=== PATIENT | male | born 1980 | race Caucasian/White ===

== ENCOUNTER 2023-08-18 17:27 | Inpatient (IN) | payer OTHER ==
[~2023-08-18] VITALS: Ht 170.2 cm; Wt 75.8 kg
[2023-08-18 19:55] LABS: BASOPHILS % (AUTO) 0.1 % (0.0-2.0); EOSINOPHILS # (AUTO) 0.3 K/uL (0.0-0.7); EOSINOPHILS % (AUTO) 1.2 % (0.0-6.0); HEMATOCRIT 22 % (39-51); LYMPHOCYTES # (AUTO) 0.7 K/uL (0.8-4.8); LYMPHOCYTES % (AUTO) 2.8 % (20.0-44.0); MEAN CORPUSCULAR HEMOGLOBIN 27 PG (26.0-33.0); MEAN CORPUSCULAR HGB CONC 31 g/dl (31.0-36.0); MEAN CORPUSCULAR VOLUME 88 fL (80-96); NEUTROPHILS # (AUTO) 22.2 K/uL (1.8-8.9); NEUTROPHILS % (AUTO) 91.9 % (43.0-81.0); PLATELET COUNT (AUTO) 552 K/uL (150-450); RED BLOOD CELL COUNT(AUTO) 2.52 MIL/uL (4.5-6.0); RED CELL DISTRIBUTION WIDTH 16.6 % (11.5-15.0); WHITE BLOOD COUNT (AUTO) 24.1 K/uL (4.3-11.0)
[2023-08-18 20:05] LABS: HEMOGLOBIN 6.9 g/dL (13.5-17.5)
[2023-08-18 20:21] LABS: ALANINE AMINOTRANSFERASE 7 U/L (12-78); ALBUMIN 2.1 g/dL (3.4-5.0); ALKALINE PHOSPHATASE 86 U/L (46-116); ASPARTATE AMINOTRANSFERASE < 5 U/L (15-37); BILIRUBIN,DIRECT 0.1 mg/dL (0.0-0.2); BILIRUBIN,TOTAL 0.3 mg/dL (0.2-1.0); CALCIUM, SERUM 6.9 mg/dL (8.5-10.1); CHLORIDE 102 mmol/L (98-107); GLUCOSE 89 mg/dL (74-106); LIPASE 88 U/L (16-77); TOTAL PROTEIN, SERUM 6.8 g/dL (6.4-8.2)
[2023-08-18 20:25] LABS: CARBON DIOXIDE 11 mmol/L (21-32); CREATININE 12.5 mg/dL (0.6-1.3); POTASSIUM 6.2 mmol/L (3.5-5.1); SODIUM SERUM 135 mmol/L (136-145); UREA NITROGEN, BLOOD 105 mg/dL (7-18)
[2023-08-18] MEDS ORDERED: FUROSEMIDE 20 MG/2 ML VIAL ONE (20:57)
[2023-08-18] MEDS: FUROSEMIDE 40 MG/4 ML VIAL IV ONE (21:00)
[2023-08-18] MEDS: SODIUM BICARBONATE SYR 50 MEQ/50 ML DISP.SYRIN IV ONE (21:00)
[2023-08-18] MEDS: SODIUM POLYSTYRENE SULFONATE 15 G/60 ML BOTTLE PO ONE (21:00)
[2023-08-18] MEDS: DEXTROSE 50%-WATER 50 ML DISP.SYRIN IV ONE (21:00)
[2023-08-18] MEDS: ALBUTEROL FS 2.5 MG/3 ML VIAL.NEB NEB ONE (21:00)
[2023-08-18] MEDS: CALCIUM CHLORIDE 1,000 MG/10 ML DISP.SYRIN IV ONE (21:00)
[2023-08-18] MEDS: INSULIN REGULAR, HUMAN 100 UNIT/ML 10 ML VIAL IV ONE (21:38)
[2023-08-18 22:06] LABS: ANISOCYTOSIS 1+; BAND % (MANUAL) 1 % (0.0-5.0); EOSINOPHILS % (MANUAL) 2 % (0-4); LYMPHOCYTES % (MANUAL) 4 % (16-48); MONOCYTES % (MANUAL) 3 % (0-11.0); NEUTROPHILS % (MANUAL) 90 (42-76); PLATELET ESTIMATE INCREASED
[2023-08-19] VITALS (8 sets, daily range): BP systolic 96–119; BP diastolic 69–82; TEMP 97.5–98.8; O2SAT 95–99
[2023-08-19] MEDS ORDERED: ACETAMINOPHEN 325 MG TABLET PO PRN (00:30)
[2023-08-19] MEDS ORDERED: CEFTRIAXONE 1 G in IV D5W 50 ML IV SCH (00:30)
[2023-08-19] MEDS ORDERED: PANTOPRAZOLE 40 MG VIAL IV SCH ×2 (00:30→09:00)
[2023-08-19] MEDS ORDERED: MAG HYDROX/AL HYDROX/SIMETH 30 ML UDC PO PRN (00:30)
[2023-08-19] MEDS: DEXTROSE 50%-WATER 50 ML DISP.SYRIN IVP ONE (00:48)
[2023-08-19] MEDS: IV D5/0.45 NACL 1,000 ML IV PRN (00:49)
[2023-08-19 01:26] LABS: CALCIUM, SERUM 7.3 mg/dL (8.5-10.1); POTASSIUM 3.9 mmol/L (3.5-5.1)
[2023-08-19 01:27] LABS: CREATININE 12.9 mg/dL (0.6-1.3)
[2023-08-19] MEDS: CEFTRIAXONE 1GM BAG (ER ONLY) 50 ML IV ONE (03:20)
[2023-08-19] MEDS: PANTOPRAZOLE 40 MG VIAL IV SCH (03:34)
[2023-08-19] MEDS: CEFTRIAXONE 1 G in IV D5W 50 ML IV SCH (03:35)
[2023-08-19] MEDS ORDERED: MIRT7.5T10 PO (08:12)
[2023-08-19] MEDS ORDERED: ALPR0.255 PO (08:12)
[2023-08-19] MEDS ORDERED: CARV25TA2 PO (08:12)
[2023-08-19] MEDS ORDERED: AMLO-213 PO (08:12)
[2023-08-19] MEDS ORDERED: PANT40TA49 PO (08:12)
[2023-08-19 14:57] LABS: BASOPHILS % (AUTO) 0.1 % (0.0-2.0); EOSINOPHILS # (AUTO) 0.3 K/uL (0.0-0.7); EOSINOPHILS % (AUTO) 1.2 % (0.0-6.0); HEMATOCRIT 23 % (39-51); HEMOGLOBIN 7.3 g/dL (13.5-17.5); LYMPHOCYTES # (AUTO) 0.5 K/uL (0.8-4.8); LYMPHOCYTES % (AUTO) 1.9 % (20.0-44.0); MEAN CORPUSCULAR HEMOGLOBIN 27 PG (26.0-33.0); MEAN CORPUSCULAR HGB CONC 32 g/dl (31.0-36.0); MEAN CORPUSCULAR VOLUME 87 fL (80-96); MONOCYTES # (AUTO) 1.1 K/uL (0.1-1.30); MONOCYTES % (AUTO) 4.3 % (2.0-12.0); NEUTROPHILS # (AUTO) 22.8 K/uL (1.8-8.9); NEUTROPHILS % (AUTO) 92.5 % (43.0-81.0); PLATELET COUNT (AUTO) 484 K/uL (150-450); RED BLOOD CELL COUNT(AUTO) 2.66 MIL/uL (4.5-6.0); RED CELL DISTRIBUTION WIDTH 16.6 % (11.5-15.0); WHITE BLOOD COUNT (AUTO) 24.6 K/uL (4.3-11.0)
[2023-08-19] MEDS: ONDANSETRON HCL/PF 4 MG/2 ML VIAL IVP PRN (17:28)
[2023-08-19] MEDS: ALPRAZOLAM 0.25 MG TABLET PO PRN (17:31)
[2023-08-19 20:11] LABS: APPEARANCE,URINE CLEAR (CLEAR); BILIRUBIN,URINE NEGATIVE (NEGATIVE); BLOOD, URINE 3+ Ery/uL (NEGATIVE); COLOR,URINE YELLOW (YELLOW); KETONES,URINE NEGATIVE (NEGATIVE); LEUKOCYTE ESTERASE ,URINE 1+ (NEGATIVE); NITRITE, URINE NEGATIVE (NEGATIVE); PH,URINE 5.5 (5.0-8.0); PROTEIN,URINE 3+ mg/dl (NEGATIVE); UGLUCOSE TRACE mg/dL (NEGATIVE); UROBILINOGEN,URINE 0.2 EU/dL (0.2)
[2023-08-19 20:30] LABS: CREATININE, URINE 119.9 MG/DL (30.0-125.0); URINE TOTAL PROTEIN 650.3 mg/dL (0-11.9)
[2023-08-19 20:31] LABS: AMPHETAMINE, URINE NEGATIVE (NEGATIVE); BARBITURATE, URINE NEGATIVE (NEGATIVE); CANNABINOID, URINE NEGATIVE (NEGATIVE); COCCAINE, URINE NEGATIVE (NEGATIVE); OPIATE, URINE NEGATIVE (NEGATIVE); PHENCYCLIDINE SCREEN,URINE NEGATIVE (NEGATIVE)
[2023-08-19 20:32] LABS: BENZODIAZEPINE, URINE POSITIVE (NEGATIVE)
[2023-08-19 21:25] LABS: ADD URINE CULTURE YES; BACTERIA,URINE 1+ /HPF (None Seen); MUCUS,URINE Moderate /LPF (None Seen); SQUAMOUS EPITHELIAL CELL,UR None Seen /HPF (None Seen)
[2023-08-19 21:39] LABS: EOSINOPHIL,URINE None Seen
[2023-08-19] MEDS: MIRTAZAPINE 15 MG TABLET PO SCH (22:07)
[2023-08-20] VITALS (15 sets, daily range): BP systolic 113–149; BP diastolic 73–90; TEMP 97.4–98.8; O2SAT 95–99
[2023-08-20 07:02] LABS: BASOPHILS % (AUTO) 0.2 % (0.0-2.0); EOSINOPHILS # (AUTO) 0.5 K/uL (0.0-0.7); LYMPHOCYTES # (AUTO) 1.2 K/uL (0.8-4.8); LYMPHOCYTES % (AUTO) 5.1 % (20.0-44.0); MEAN CORPUSCULAR HEMOGLOBIN 28 PG (26.0-33.0); MEAN CORPUSCULAR HGB CONC 33 g/dl (31.0-36.0); MEAN CORPUSCULAR VOLUME 86 fL (80-96); MONOCYTES # (AUTO) 1.2 K/uL (0.1-1.30); MONOCYTES % (AUTO) 5.2 % (2.0-12.0); NEUTROPHILS # (AUTO) 20.5 K/uL (1.8-8.9); NEUTROPHILS % (AUTO) 87.5 % (43.0-81.0); PLATELET COUNT (AUTO) 471 K/uL (150-450); RED BLOOD CELL COUNT(AUTO) 2.35 MIL/uL (4.5-6.0); RED CELL DISTRIBUTION WIDTH 15.9 % (11.5-15.0); WHITE BLOOD COUNT (AUTO) 23.4 K/uL (4.3-11.0)
[2023-08-20 07:19] LABS: ALBUMIN 1.7 g/dL (3.4-5.0); BILIRUBIN,TOTAL 0.2 mg/dL (0.2-1.0); POTASSIUM 3.9 mmol/L (3.5-5.1)
[2023-08-20 07:26] LABS: CALCIUM, SERUM 5.7 mg/dL (8.5-10.1); CREATININE 12.2 mg/dL (0.6-1.3); HEMATOCRIT 20 % (39-51); HEMOGLOBIN 6.6 g/dL (13.5-17.5); MAGNESIUM 0.9 mg/dL (1.8-2.4); PHOSPHORUS 12.3 mg/dL (2.5-4.9)
[2023-08-20] MEDS ORDERED: SODIUM POLYSTYRENE SULFONATE 15 G/60 ML BOTTLE PO ONE (08:00)
[2023-08-20] MEDS: PANTOPRAZOLE 40 MG TABLET.DR PO SCH (08:16)
[2023-08-20] MEDS: AMLODIPINE BESYLATE 10 MG TABLET PO SCH (10:13)
[2023-08-20 10:22] LABS: BASOPHILS % (MANUAL) 0 % (0.0-2.0); EOSINOPHILS % (MANUAL) 3 % (0-4); LYMPHOCYTES % (MANUAL) 7 % (16-48); MONOCYTES % (MANUAL) 5 % (0-11.0); NEUTROPHILS % (MANUAL) 85 (42-76)
[2023-08-20 10:23] LABS: ANISOCYTOSIS 1+; PLATELET ESTIMATE ADEQUATE
[2023-08-20] MEDS: Magnesium 1GM/D5W 100ML PREMIX 100 ML IV SCH (10:55)
[2023-08-20] MEDS: PIPERACILLIN /TAZOBACTAM 3.375 G in IV D5W 100 ML IV SCH (11:30)
[2023-08-20] MEDS ORDERED: PIPERACILLIN /TAZOBACTAM 2.25 G in IV D5W 50 ML IV SCH (12:00)
[2023-08-20] MEDS: Sodium Bicarbonate 100 MEQ in IV D5/0.45 NACL 1,000 ML IV SCH (14:41)
[2023-08-20] MEDS: CITRIC ACID/SODIUM CITRATE (BICITRA)15 ML UDC PO SCH (14:41)
[2023-08-20] MEDS: SEVELAMER CARBONATE 800 MG TABLET PO SCH (17:38)
[2023-08-20] MEDS: CALCIUM ACETATE 667 MG CAP/TAB PO SCH (17:38)
[2023-08-21] VITALS (8 sets, daily range): BP systolic 136–154; BP diastolic 80–93; TEMP 97.7–99.9; O2SAT 91–97
[2023-08-21 07:13] LABS: BASOPHILS # (AUTO) 0.1 K/uL (0.0-0.2); BASOPHILS % (AUTO) 0.4 % (0.0-2.0); EOSINOPHILS # (AUTO) 0.5 K/uL (0.0-0.7); EOSINOPHILS % (AUTO) 3.1 % (0.0-6.0); HEMATOCRIT 22 % (39-51); HEMOGLOBIN 7.2 g/dL (13.5-17.5); LYMPHOCYTES # (AUTO) 0.9 K/uL (0.8-4.8); MEAN CORPUSCULAR HEMOGLOBIN 28 PG (26.0-33.0); MEAN CORPUSCULAR HGB CONC 33 g/dl (31.0-36.0); MEAN CORPUSCULAR VOLUME 85 fL (80-96); MONOCYTES % (AUTO) 6.4 % (2.0-12.0); NEUTROPHILS # (AUTO) 13.2 K/uL (1.8-8.9); NEUTROPHILS % (AUTO) 84.1 % (43.0-81.0); PLATELET COUNT (AUTO) 422 K/uL (150-450); RED BLOOD CELL COUNT(AUTO) 2.54 MIL/uL (4.5-6.0); RED CELL DISTRIBUTION WIDTH 16.6 % (11.5-15.0); WHITE BLOOD COUNT (AUTO) 15.8 K/uL (4.3-11.0)
[2023-08-21 07:14] LABS: MAGNESIUM 1.3 mg/dL (1.8-2.4); POTASSIUM 3.5 mmol/L (3.5-5.1)
[2023-08-21 08:21] LABS: CALCIUM, SERUM 5.8 mg/dL (8.5-10.1)
[2023-08-21 08:22] LABS: CREATININE 12.1 mg/dL (0.6-1.3)
[2023-08-21 09:37] LABS: THYROID STIMULATING HORMONE 1.889 uIU/mL (0.358-3.74)
[2023-08-21 09:43] LABS: INR 1.13 (0.91-1.10); PARTIAL THROMBOPLASTIN TIME 43.1 SEC (24.3-34.3); PROTHROMBIN TIME 11.9 SECS (9.2-11.1)
[2023-08-21] MEDS: Magnesium 1GM/D5W 100ML PREMIX 100 ML IV SCH (10:18)
[2023-08-21] MEDS ORDERED: LORAZEPAM INJ 2 MG/ML VIAL IV STA (10:54)
[2023-08-21] MEDS: DIAZEPAM 5 MG/ML 2 ML DISP.SYRIN IV STA (11:08)
[2023-08-21] MEDS: HYDROCODONE/APAP 5/325MG TABLET PO PRN (12:17)
[2023-08-21] MEDS: ALPRAZOLAM 0.25 MG TABLET PO PRN (14:27)
[2023-08-21] MEDS: PIPERACILLIN /TAZOBACTAM 2.25 G in IV D5W 50 ML IV SCH (20:46)
[2023-08-22] VITALS: BP_SYST 106; BP_SYST 145; BP_DIAS 67; BP_DIAS 93; TEMP 98.2; TEMP 98.4; O2SAT 95
[2023-08-22 01:09] LABS: PTH, INTACT 160 pg/mL (15-65)
[2023-08-22 04:00] VITALS: BP 154/96; TEMP 98.1; O2SAT 95
[2023-08-22 05:09] LABS: HEPATITIS B SURFACE AB Non Reactive (.)
[2023-08-22 07:26] LABS: BASOPHILS % (AUTO) 0.2 % (0.0-2.0); EOSINOPHILS # (AUTO) 0.5 K/uL (0.0-0.7); EOSINOPHILS % (AUTO) 2.6 % (0.0-6.0); HEMATOCRIT 23 % (39-51); HEMOGLOBIN 7.6 g/dL (13.5-17.5); LYMPHOCYTES # (AUTO) 0.8 K/uL (0.8-4.8); LYMPHOCYTES % (AUTO) 4.6 % (20.0-44.0); MEAN CORPUSCULAR HEMOGLOBIN 28 PG (26.0-33.0); MEAN CORPUSCULAR HGB CONC 34 g/dl (31.0-36.0); MEAN CORPUSCULAR VOLUME 83 fL (80-96); MONOCYTES % (AUTO) 5.6 % (2.0-12.0); NEUTROPHILS # (AUTO) 15.5 K/uL (1.8-8.9); PLATELET COUNT (AUTO) 423 K/uL (150-450); WHITE BLOOD COUNT (AUTO) 17.8 K/uL (4.3-11.0)
[2023-08-22 07:47] LABS: MAGNESIUM 1.6 mg/dL (1.8-2.4); POTASSIUM 3.4 mmol/L (3.5-5.1)
[2023-08-22 08:00] VITALS: BP 164/89; TEMP 98.6; O2SAT 94
[2023-08-22 08:09] LABS: *SPE A/G RATIO 0.6 (0.7-1.7); *SPE ALBUMIN 1.8 g/dL (2.9-4.4); *SPE ALPHA-1-GLOBULIN 0.5 g/dL (0.0-0.4); *SPE ALPHA-2-GLOBULIN 1.1 g/dL (0.4-1.0); *SPE BETA GLOBULIN 0.7 g/dL (0.7-1.3); *SPE GLOBULIN, TOTAL 3.2 g/dL (2.2-3.9); *SPE M-SPIKE Not Observed g/dL (Not Observed); *SPEGAMMA GLOBULIN 0.8 g/dL (0.4-1.8)
[2023-08-22] MEDS: NICOTINE PATCH (21MG) 21 MG PATCH.TD24 TD SCH (10:36)
[2023-08-22] MEDS: Magnesium 1GM/D5W 100ML PREMIX 100 ML IV SCH (11:00)
[2023-08-22 12:00] VITALS: BP 164/102; TEMP 99.1; O2SAT 94
[2023-08-22] MEDS: NIFEdipine XL (30MG) 30 MG TAB PO SCH (13:14)
[2023-08-22 15:11] LABS: HBSAG SCREEN Negative (Negative); HEPATITIS A AB, IgM Negative (Negative); HEPATITIS B CORE AB, IgM Negative (Negative)
[2023-08-22 16:00] VITALS: BP 159/98; TEMP 97.9; O2SAT 94
[2023-08-22] MEDS: CLONIDINE HCL 0.1 MG TABLET PO PRN (16:40)
[2023-08-22 20:30] VITALS: BP 140/100; TEMP 98.1; O2SAT 92
[2023-08-23] VITALS (7 sets, daily range): BP systolic 135–195; BP diastolic 84–107; TEMP 97.9–98.3; O2SAT 93–100
[2023-08-23 07:21] LABS: BASOPHILS % (AUTO) 0.2 % (0.0-2.0); EOSINOPHILS # (AUTO) 0.1 K/uL (0.0-0.7); EOSINOPHILS % (AUTO) 0.8 % (0.0-6.0); HEMATOCRIT 26 % (39-51); HEMOGLOBIN 8.7 g/dL (13.5-17.5); LYMPHOCYTES # (AUTO) 0.7 K/uL (0.8-4.8); LYMPHOCYTES % (AUTO) 3.9 % (20.0-44.0); MEAN CORPUSCULAR HEMOGLOBIN 28 PG (26.0-33.0); MEAN CORPUSCULAR HGB CONC 33 g/dl (31.0-36.0); MEAN CORPUSCULAR VOLUME 83 fL (80-96); MONOCYTES # (AUTO) 0.9 K/uL (0.1-1.30); MONOCYTES % (AUTO) 4.8 % (2.0-12.0); NEUTROPHILS % (AUTO) 90.3 % (43.0-81.0); PLATELET COUNT (AUTO) 460 K/uL (150-450); RED BLOOD CELL COUNT(AUTO) 3.17 MIL/uL (4.5-6.0); RED CELL DISTRIBUTION WIDTH 16.2 % (11.5-15.0); WHITE BLOOD COUNT (AUTO) 18.9 K/uL (4.3-11.0)
[2023-08-23] MEDS ORDERED: ANESTHESIA TRAY IN PYXIS 1 EA TRAY MC ONE (07:32)
[2023-08-23] MEDS ORDERED: IOHEXOL 0 ML IV ONE (07:32)
[2023-08-23] MEDS ORDERED: LIDOCAINE HCL/MPF 1% 30 ML VIAL IJ ONE (07:33)
[2023-08-23] MEDS ORDERED: HEPARIN SODIUM, PORCINE 1,000 UNIT/ML VIAL ONE (07:33)
[2023-08-23 07:48] LABS: INR 1.18 (0.91-1.10); PARTIAL THROMBOPLASTIN TIME 44.1 SEC (24.3-34.3); PROTHROMBIN TIME 12.4 SECS (9.2-11.1)
[2023-08-23 08:48] LABS: CALCIUM, SERUM 8.6 mg/dL (8.5-10.1); CREATININE 7.2 mg/dL (0.6-1.3); MAGNESIUM 2.2 mg/dL (1.8-2.4); POTASSIUM 3.8 mmol/L (3.5-5.1)
[2023-08-23] MEDS ORDERED: VANCOMYCIN POST DIALYSIS 500MG IV PRN (09:30)
[2023-08-23] MEDS: VANCOMYCIN 1 GM in IV D5W 250ml IV ONE (11:08)
[2023-08-23] MEDS: ANCEF 1 GM/50 ML D5W IV SCH (15:49)
[2023-08-23] MEDS: TUBERCULIN,PURIF.PROT.DERIV. 5 TU/0.1 ML DISP.SYRIN ID ONE (17:00)
[2023-08-23] MEDS: ALPRAZOLAM 0.25 MG TABLET PO PRN (19:50)
[2023-08-24] VITALS: BP 191/110; TEMP 98.1; O2SAT 99
[2023-08-24 05:07] VITALS: BP 180/110; O2SAT 96
[2023-08-24 06:57] LABS: BASOPHILS # (AUTO) 0.1 K/uL (0.0-0.2); BASOPHILS % (AUTO) 0.4 % (0.0-2.0); EOSINOPHILS # (AUTO) 0.6 K/uL (0.0-0.7); EOSINOPHILS % (AUTO) 4.1 % (0.0-6.0); HEMATOCRIT 24 % (39-51); LYMPHOCYTES # (AUTO) 0.8 K/uL (0.8-4.8); LYMPHOCYTES % (AUTO) 5.9 % (20.0-44.0); MEAN CORPUSCULAR HEMOGLOBIN 28 PG (26.0-33.0); MEAN CORPUSCULAR HGB CONC 34 g/dl (31.0-36.0); MEAN CORPUSCULAR VOLUME 84 fL (80-96); MONOCYTES # (AUTO) 0.7 K/uL (0.1-1.30); MONOCYTES % (AUTO) 4.9 % (2.0-12.0); NEUTROPHILS # (AUTO) 11.9 K/uL (1.8-8.9); NEUTROPHILS % (AUTO) 84.7 % (43.0-81.0); PLATELET COUNT (AUTO) 391 K/uL (150-450); RED BLOOD CELL COUNT(AUTO) 2.84 MIL/uL (4.5-6.0); RED CELL DISTRIBUTION WIDTH 16.1 % (11.5-15.0)
[2023-08-24 07:00] VITALS: BP 197/111; TEMP 97.7; O2SAT 96
[2023-08-24 07:13] LABS: CALCIUM, SERUM 8.1 mg/dL (8.5-10.1); CREATININE 6.8 mg/dL (0.6-1.3); POTASSIUM 3.4 mmol/L (3.5-5.1)
[2023-08-24] MEDS: NIFEdipine XL (30MG) 30 MG TAB PO SCH ×2 (08:46→16:48)
[2023-08-24] MEDS: LABETALOL 20 MG/4 ML VIAL IV ONE (09:02)
[2023-08-24] MEDS ORDERED: LABETALOL 20 MG/4 ML VIAL IV PRN (11:00)
[2023-08-24] MEDS: hydrALAZINE HCL 10 MG TABLET PO PRN (11:01)
[2023-08-24 16:00] VITALS: BP 158/93; TEMP 98.2; O2SAT 93
[2023-08-24 20:00] VITALS: BP 141/100; TEMP 98.4; O2SAT 94
[2023-08-24 21:04] VITALS: BP 141/100; TEMP 98.4; O2SAT 94
[2023-08-24] MEDS: MAGNESIUM HYDROXIDE 30 ML UDC PO PRN (21:46)
[2023-08-25] VITALS (12 sets, daily range): BP systolic 137–173; BP diastolic 87–106; TEMP 97.9–99; O2SAT 95–100
[2023-08-25 07:12] LABS: BASOPHILS # (AUTO) 0.1 K/uL (0.0-0.2); BASOPHILS % (AUTO) 0.4 % (0.0-2.0); EOSINOPHILS # (AUTO) 0.9 K/uL (0.0-0.7); EOSINOPHILS % (AUTO) 5.8 % (0.0-6.0); HEMATOCRIT 27 % (39-51); HEMOGLOBIN 8.8 g/dL (13.5-17.5); LYMPHOCYTES # (AUTO) 1.2 K/uL (0.8-4.8); LYMPHOCYTES % (AUTO) 8.1 % (20.0-44.0); MEAN CORPUSCULAR HEMOGLOBIN 28 PG (26.0-33.0); MEAN CORPUSCULAR HGB CONC 33 g/dl (31.0-36.0); MEAN CORPUSCULAR VOLUME 84 fL (80-96); MONOCYTES # (AUTO) 0.7 K/uL (0.1-1.30); MONOCYTES % (AUTO) 4.6 % (2.0-12.0); NEUTROPHILS # (AUTO) 12.4 K/uL (1.8-8.9); NEUTROPHILS % (AUTO) 81.1 % (43.0-81.0); PLATELET COUNT (AUTO) 389 K/uL (150-450); RED CELL DISTRIBUTION WIDTH 15.8 % (11.5-15.0); WHITE BLOOD COUNT (AUTO) 15.2 K/uL (4.3-11.0)
[2023-08-25 07:53] LABS: CALCIUM, SERUM 7.5 mg/dL (8.5-10.1)
[2023-08-25 07:57] LABS: CREATININE 7.6 mg/dL (0.6-1.3)
[2023-08-25] MEDS ORDERED: IPRATROPIUM NEB FS 0.5 MG/2.5 ML AMPUL.NEB NEB SCH (08:30)
[2023-08-25] MEDS: ALBUTEROL FS 2.5 MG/0.5 ML VIAL.NEB NEB SCH (15:05)
[2023-08-25] MEDS: ACETYLCYSTEINE 10% SOLN 400 MG/4 ML VIAL NEB SCH (15:05)
[2023-08-25] MEDS: IPRATROPIUM NEB FS 0.5 MG/2.5 ML AMPUL.NEB NEB SCH (15:08)
[2023-08-25] MEDS: VANCOMYCIN 1 GM in IV D5W 250 ML IV ONE (20:22)
[2023-08-25] MEDS: MIRTAZAPINE 15 MG TABLET PO SCH (21:48)
[2023-08-26] VITALS (13 sets, daily range): BP systolic 153–197; BP diastolic 81–113; TEMP 97.5–98.9; O2SAT 92–99
[2023-08-26] MEDS ORDERED: VANCOMYCIN 500 MG in IV D5W 100 ML IV PRN (06:00)
[2023-08-26 06:52] LABS: BASOPHILS # (AUTO) 0.1 K/uL (0.0-0.2); BASOPHILS % (AUTO) 0.6 % (0.0-2.0); EOSINOPHILS # (AUTO) 0.8 K/uL (0.0-0.7); HEMATOCRIT 26 % (39-51); HEMOGLOBIN 8.6 g/dL (13.5-17.5); LYMPHOCYTES # (AUTO) 1.2 K/uL (0.8-4.8); LYMPHOCYTES % (AUTO) 7.5 % (20.0-44.0); MEAN CORPUSCULAR HEMOGLOBIN 28 PG (26.0-33.0); MEAN CORPUSCULAR HGB CONC 33 g/dl (31.0-36.0); MEAN CORPUSCULAR VOLUME 85 fL (80-96); MONOCYTES # (AUTO) 0.7 K/uL (0.1-1.30); MONOCYTES % (AUTO) 4.7 % (2.0-12.0); NEUTROPHILS % (AUTO) 82.2 % (43.0-81.0); PLATELET COUNT (AUTO) 333 K/uL (150-450); RED CELL DISTRIBUTION WIDTH 15.4 % (11.5-15.0); WHITE BLOOD COUNT (AUTO) 15.8 K/uL (4.3-11.0)
[2023-08-26 08:04] LABS: CALCIUM, SERUM 7.5 mg/dL (8.5-10.1); CREATININE 5.9 mg/dL (0.6-1.3)
[2023-08-26] MEDS: POTASSIUM CHLORIDE 20 MEQ TAB.PRT.SR PO ONE (11:52)
[2023-08-26] MEDS: LABETALOL HCL (100MG) 100 MG TABLET PO SCH (16:00)
[2023-08-27] VITALS: BP 153/91; TEMP 98.1; O2SAT 95
[2023-08-27 06:41] LABS: BASOPHILS # (AUTO) 0.1 K/uL (0.0-0.2); BASOPHILS % (AUTO) 0.5 % (0.0-2.0); EOSINOPHILS # (AUTO) 0.7 K/uL (0.0-0.7); EOSINOPHILS % (AUTO) 3.3 % (0.0-6.0); HEMATOCRIT 24 % (39-51); HEMOGLOBIN 7.6 g/dL (13.5-17.5); LYMPHOCYTES # (AUTO) 1.5 K/uL (0.8-4.8); LYMPHOCYTES % (AUTO) 7.6 % (20.0-44.0); MEAN CORPUSCULAR HEMOGLOBIN 27 PG (26.0-33.0); MEAN CORPUSCULAR HGB CONC 32 g/dl (31.0-36.0); MEAN CORPUSCULAR VOLUME 85 fL (80-96); MONOCYTES # (AUTO) 0.9 K/uL (0.1-1.30); MONOCYTES % (AUTO) 4.5 % (2.0-12.0); NEUTROPHILS # (AUTO) 17.1 K/uL (1.8-8.9); NEUTROPHILS % (AUTO) 84.1 % (43.0-81.0); PLATELET COUNT (AUTO) 289 K/uL (150-450); RED BLOOD CELL COUNT(AUTO) 2.82 MIL/uL (4.5-6.0); RED CELL DISTRIBUTION WIDTH 15.8 % (11.5-15.0); WHITE BLOOD COUNT (AUTO) 20.3 K/uL (4.3-11.0)
[2023-08-27 06:53] LABS: CALCIUM, SERUM 7.9 mg/dL (8.5-10.1); CREATININE 6.8 mg/dL (0.6-1.3); MAGNESIUM 1.8 mg/dL (1.8-2.4); POTASSIUM 3.6 mmol/L (3.5-5.1)
[2023-08-27 07:00] VITALS: BP 165/90; TEMP 98.1; O2SAT 95
[2023-08-27] MEDS ORDERED: AMOX-430 PO (07:45)
[2023-08-27] MEDS ORDERED: NIFE-35 PO (07:45)
[2023-08-27] MEDS: CARVEDILOL 12.5 MG TABLET PO SCH (08:37)
[2023-08-27 08:40] VITALS: BP 168/90
== END 2023-08-27 13:00 | disposition home or self-care (01) | DRG 177 ==
LOC: ER 17:27 → TELE 23:44 → MED 08-27 12:04
PROVIDERS: ADMIT Nurse Practitioner Acute Care; ATTEND Internal Medicine
PROC: 30233N1 Transfusion of Nonautologous Red Blood Cells into Peripheral Vein, Percutaneous Approach (ICD-10-PCS; 2023-08-18)
PROC: 5A1D70Z Performance of Urinary Filtration, Intermittent, Less than 6 Hours Per Day (ICD-10-PCS; 2023-08-19)
PROC: 05HM33Z Insertion of Infusion Device into Right Internal Jugular Vein, Percutaneous Approach (ICD-10-PCS; 2023-08-21)
PROC: B543ZZA Ultrasonography of Right Jugular Veins, Guidance (ICD-10-PCS; 2023-08-21)
PROC: 0JH63XZ Insertion of Tunneled Vascular Access Device into Chest Subcutaneous Tissue and Fascia, Percutaneous Approach (ICD-10-PCS; principal; 2023-08-23)
PROC: 05HM33Z Insertion of Infusion Device into Right Internal Jugular Vein, Percutaneous Approach (ICD-10-PCS; 2023-08-23)
PROC: B543ZZA Ultrasonography of Right Jugular Veins, Guidance (ICD-10-PCS; 2023-08-23)
DX: J69.0 Pneumonitis due to inhalation of food and vomit (principal); E43 Unspecified severe protein-calorie malnutrition; I21.A1 Myocardial infarction type 2; N17.0 Acute kidney failure with tubular necrosis; J96.01 Acute respiratory failure with hypoxia; E87.1 Hypo-osmolality and hyponatremia; N39.0 Urinary tract infection, site not specified; Z59.00 Homelessness unspecified; M62.82 Rhabdomyolysis; N18.5 Chronic kidney disease, stage 5; J98.11 Atelectasis; J90 Pleural effusion, not elsewhere classified; D63.8 Anemia in other chronic diseases classified elsewhere; E86.0 Dehydration; K21.9 Gastro-esophageal reflux disease without esophagitis; Z20.822 Contact with and (suspected) exposure to COVID-19; F19.10 Other psychoactive substance abuse, uncomplicated; E88.09 Other disorders of plasma-protein metabolism, not elsewhere classified; F41.9 Anxiety disorder, unspecified; E87.5 Hyperkalemia; E83.42 Hypomagnesemia; E87.6 Hypokalemia; F17.200 Nicotine dependence, unspecified, uncomplicated; F32.9 Major depressive disorder, single episode, unspecified; F43.10 Post-traumatic stress disorder, unspecified; X58.XXXA Exposure to other specified factors, initial encounter; Y92.9 Unspecified place or not applicable; I13.10 Hypertensive heart and chronic kidney disease without heart failure, with stage 1 through stage 4 chronic kidney disease, or unspecified chronic kidney disease; W34.00XS Accidental discharge from unspecified firearms or gun, sequela; Y95 Nosocomial condition; Z79.899 Other long term (current) drug therapy; Z88.2 Allergy status to sulfonamides; Z87.828 Personal history of other (healed) physical injury and trauma
CPT/HCPCS: 36415; 71045-TC; 71250-TC; 76770-TC; 80048-TC; 80053-TC; 80061-TC; 80076-TC; 80202-TC; 81001; 82550-TC; 82570-TC; 82728-TC; 82962-TC; 83540-TC; 83690-TC; 83735-TC; 83970; 84100-TC; 84155; 84165; 84300-TC; 84443-TC; 84484-TC; 85025-TC; 85610-TC; 85730-TC; 86706; 86850-TC; 87040-TC; 87086-TC; 87340; 90935-TC; 93307-TC; 94799-TC; 97112-TC; 97116-TC; 97530-TC; A4223; C1750; C9113; G0378; J0330; J0690; J0696; J1644; J1815; J1940; J2405; J2543; J2704; J3360; J3370; J3475; J3490; J7030; J7040; J7050; J7060; P9016; Q9967

== ENCOUNTER 2023-09-15 09:14 | Emergency (ER) | payer OTHER ==
[~2023-09-15] VITALS: Ht 170.2 cm; Wt 67.1 kg
[~2023-09-15 09:14] MED LIST: ALPR0.255 PO; AMOX-430 PO; CARV25TA2 PO; MIRT7.5T10 PO; NIFE-35 PO; PANT40TA49 PO
[2023-09-15 10:12] LABS: BASOPHILS # (AUTO) 0.2 K/uL (0.0-0.2); BASOPHILS % (AUTO) 1.9 % (0.0-2.0); EOSINOPHILS # (AUTO) 0.7 K/uL (0.0-0.7); EOSINOPHILS % (AUTO) 7.3 % (0.0-6.0); HEMATOCRIT 24 % (39-51); HEMOGLOBIN 7.9 g/dL (13.5-17.5); LYMPHOCYTES # (AUTO) 0.7 K/uL (0.8-4.8); LYMPHOCYTES % (AUTO) 7.7 % (20.0-44.0); MEAN CORPUSCULAR HEMOGLOBIN 27 PG (26.0-33.0); MEAN CORPUSCULAR HGB CONC 32 g/dl (31.0-36.0); MEAN CORPUSCULAR VOLUME 84 fL (80-96); MONOCYTES # (AUTO) 0.5 K/uL (0.1-1.30); NEUTROPHILS # (AUTO) 7.6 K/uL (1.8-8.9); NEUTROPHILS % (AUTO) 78.1 % (43.0-81.0); PLATELET COUNT (AUTO) 485 K/uL (150-450); RED CELL DISTRIBUTION WIDTH 18.9 % (11.5-15.0); WHITE BLOOD COUNT (AUTO) 9.7 K/uL (4.3-11.0)
[2023-09-15 10:16] LABS: INR 1.08 (0.91-1.10); PARTIAL THROMBOPLASTIN TIME 30.3 SEC (24.3-34.3); PROTHROMBIN TIME 11.4 SECS (9.2-11.1)
[2023-09-15 10:19] LABS: CALCIUM, SERUM 8.7 mg/dL (8.5-10.1); POTASSIUM 3.1 mmol/L (3.5-5.1)
[2023-09-15 10:24] LABS: ALBUMIN 2.3 g/dL (3.4-5.0); BILIRUBIN,DIRECT 0.1 mg/dL (0.0-0.2); BILIRUBIN,TOTAL 0.2 mg/dL (0.2-1.0); TOTAL PROTEIN, SERUM 6.9 g/dL (6.4-8.2)
[2023-09-15] MEDS ORDERED: PANT40TA2 PO (12:38)
[2023-09-15 13:00] VITALS: BP 107/61; TEMP 98.1; O2SAT 95
== END 2023-09-15 13:04 | disposition home or self-care (01) ==
LOC: ER 09:14
DX: I12.0 Hypertensive chronic kidney disease with stage 5 chronic kidney disease or end stage renal disease (principal); N18.6 End stage renal disease; N17.9 Acute kidney failure, unspecified; D63.1 Anemia in chronic kidney disease; Z99.2 Dependence on renal dialysis; Z88.2 Allergy status to sulfonamides; Z79.899 Other long term (current) drug therapy
CPT/HCPCS: 36415; 80048-TC; 80076-TC; 85025-TC; 85730-TC; 86850-TC

== ENCOUNTER 2023-12-17 20:31 | Emergency (ER) | payer MEDICAID, OTHER ==
[~2023-12-17] VITALS: Ht 162.6 cm; Wt 65.8 kg
[~2023-12-17 20:31] MED LIST changes: +PANT40TA2 PO
[2023-12-17 20:48] VITALS: TEMP 98.9
[2023-12-17 21:50] LABS: BASOPHILS # (AUTO) 0.1 K/uL (0.0-0.2); BASOPHILS % (AUTO) 0.5 % (0.0-2.0); EOSINOPHILS # (AUTO) 0.7 K/uL (0.0-0.7); EOSINOPHILS % (AUTO) 4.7 % (0.0-6.0); HEMATOCRIT 30 % (39-51); HEMOGLOBIN 9.4 g/dL (13.5-17.5); LYMPHOCYTES # (AUTO) 0.7 K/uL (0.8-4.8); LYMPHOCYTES % (AUTO) 4.3 % (20.0-44.0); MEAN CORPUSCULAR HEMOGLOBIN 28 PG (26.0-33.0); MEAN CORPUSCULAR HGB CONC 31 g/dl (31.0-36.0); MEAN CORPUSCULAR VOLUME 89 fL (80-96); MONOCYTES # (AUTO) 0.7 K/uL (0.1-1.30); MONOCYTES % (AUTO) 4.6 % (2.0-12.0); NEUTROPHILS # (AUTO) 13.3 K/uL (1.8-8.9); NEUTROPHILS % (AUTO) 85.9 % (43.0-81.0); PLATELET COUNT (AUTO) 475 K/uL (150-450); RED BLOOD CELL COUNT(AUTO) 3.34 MIL/uL (4.5-6.0); RED CELL DISTRIBUTION WIDTH 16.1 % (11.5-15.0); WHITE BLOOD COUNT (AUTO) 15.5 K/uL (4.3-11.0)
[2023-12-17 22:00] LABS: MAGNESIUM 1.8 mg/dL (1.8-2.4)
[2023-12-17 22:09] LABS: CALCIUM, SERUM 6.9 mg/dL (8.5-10.1); CARBON DIOXIDE 25 mmol/L (21-32); CHLORIDE 98 mmol/L (98-107); GLUCOSE 85 mg/dL (74-106); NT-PRO BNP 21032 pg/mL (0-125); POTASSIUM 3.2 mmol/L (3.5-5.1); SODIUM SERUM 137 mmol/L (136-145); UREA NITROGEN, BLOOD 62 mg/dL (7-18)
[2023-12-17 22:10] LABS: THYROID STIMULATING HORMONE 2.232 uIU/mL (0.358-3.74)
[2023-12-17 22:23] LABS: CREATININE 10.9 mg/dL (0.6-1.3)
[2023-12-17] MEDS: CLINDAMYCIN IV RTU IN D5W 600 MG/50 ML PIGGYBACK IV ONE (23:02)
[2023-12-17] MEDS: POTASSIUM CHLORIDE 20 MEQ TAB.PRT.SR PO ONE (23:02)
[2023-12-17] MEDS: FUROSEMIDE 40 MG/4 ML VIAL IV ONE (23:02)
[2023-12-17 23:07] VITALS: BP 140/85; O2SAT 98
== END 2023-12-17 22:55 | disposition left against medical advice (07) ==
LOC: ER 20:36
DX: I13.2 Hypertensive heart and chronic kidney disease with heart failure and with stage 5 chronic kidney disease, or end stage renal disease (principal); I50.9 Heart failure, unspecified; N18.6 End stage renal disease; R00.2 Palpitations; Z99.2 Dependence on renal dialysis; F10.10 Alcohol abuse, uncomplicated; F10.19 Alcohol abuse with unspecified alcohol-induced disorder; F17.200 Nicotine dependence, unspecified, uncomplicated; H60.91 Unspecified otitis externa, right ear; H00.013 Hordeolum externum right eye, unspecified eyelid; L02.411 Cutaneous abscess of right axilla; D75.839 Thrombocytosis, unspecified; D63.1 Anemia in chronic kidney disease; Z88.2 Allergy status to sulfonamides; Y90.9 Presence of alcohol in blood, level not specified
CPT/HCPCS: 99291; 93005; 71045; 85025; 80048; 83735; 36415; 84439; 84443; 84484; 83880; J3490

== ENCOUNTER 2023-12-25 06:41 | Inpatient (IN) | payer MEDICAID ==
[~2023-12-25] VITALS: Ht 170.2 cm; Wt 61.2 kg
[2023-12-25 07:25] LABS: BASOPHILS # (AUTO) 0.1 K/uL (0.0-0.2); BASOPHILS % (AUTO) 0.6 % (0.0-2.0); EOSINOPHILS # (AUTO) 0.4 K/uL (0.0-0.7); EOSINOPHILS % (AUTO) 2.4 % (0.0-6.0); HEMATOCRIT 28 % (39-51); HEMOGLOBIN 8.9 g/dL (13.5-17.5); LYMPHOCYTES # (AUTO) 0.9 K/uL (0.8-4.8); LYMPHOCYTES % (AUTO) 5.6 % (20.0-44.0); MEAN CORPUSCULAR HEMOGLOBIN 28 PG (26.0-33.0); MEAN CORPUSCULAR HGB CONC 31 g/dl (31.0-36.0); MEAN CORPUSCULAR VOLUME 89 fL (80-96); MONOCYTES # (AUTO) 0.6 K/uL (0.1-1.30); MONOCYTES % (AUTO) 3.9 % (2.0-12.0); NEUTROPHILS # (AUTO) 14.2 K/uL (1.8-8.9); NEUTROPHILS % (AUTO) 87.5 % (43.0-81.0); PLATELET COUNT (AUTO) 434 K/uL (150-450); RED BLOOD CELL COUNT(AUTO) 3.21 MIL/uL (4.5-6.0); WHITE BLOOD COUNT (AUTO) 16.2 K/uL (4.3-11.0)
[2023-12-25 07:32] LABS: POTASSIUM 3.7 mmol/L (3.5-5.1)
[2023-12-25 07:33] LABS: CREATININE 9.6 mg/dL (0.6-1.3)
[2023-12-25 07:38] LABS: ALBUMIN 1.9 g/dL (3.4-5.0); BILIRUBIN,DIRECT 0.1 mg/dL (0.0-0.2); BILIRUBIN,TOTAL 0.3 mg/dL (0.2-1.0); TOTAL PROTEIN, SERUM 6.8 g/dL (6.4-8.2)
[2023-12-25] MEDS: VANCOMYCIN 1 GM in IV D5W 250 ML IV ONE (08:00)
[2023-12-25] MEDS ORDERED: SEVE800T28 PO (08:07)
[2023-12-25] MEDS ORDERED: NIFE-34 PO (08:07)
[2023-12-25] MEDS ORDERED: HYDR-4076 PO (08:07)
[2023-12-25 08:15] VITALS: TEMP 98.2; O2SAT 97
[2023-12-25] MEDS ORDERED: hydrALAZINE HCL IV 20 MG VIAL IV PRN (08:30)
[2023-12-25] MEDS ORDERED: ACETAMINOPHEN 325 MG TABLET PO PRN (08:30)
[2023-12-25] MEDS ORDERED: ONDANSETRON HCL/PF 4 MG/2 ML VIAL IVP PRN (08:30)
[2023-12-25] MEDS ORDERED: ALPRAZOLAM 0.25 MG TABLET PO PRN (08:30)
[2023-12-25] MEDS ORDERED: MORPHINE SULFATE INJ 2 MG/ML DISP.SYRIN IV PRN (08:30)
[2023-12-25] MEDS: PIPERACILLIN /TAZOBACTAM 3.375 G in IV D5W 50 ML IV ONE (08:57)
[2023-12-25] MEDS: NIFEDIPINE XL 60 MG TAB.ER.24 PO SCH (09:00)
[2023-12-25 09:15] LABS: AMPHETAMINE, URINE NEGATIVE (NEGATIVE); BARBITURATE, URINE NEGATIVE (NEGATIVE); CANNABINOID, URINE NEGATIVE (NEGATIVE); COCCAINE, URINE NEGATIVE (NEGATIVE); OPIATE, URINE NEGATIVE (NEGATIVE); PHENCYCLIDINE SCREEN,URINE NEGATIVE (NEGATIVE)
[2023-12-25 09:19] LABS: BENZODIAZEPINE, URINE POSITIVE (NEGATIVE)
[2023-12-25] MEDS ORDERED: IV NS 0.9% 250 ML IV ONE (10:13)
[2023-12-25] MEDS ORDERED: CT SWABBABLE VALVE TRANS SET 1 EA INFUS.SET MC ONE (10:13)
[2023-12-25] MEDS ORDERED: IOHEXOL-350 100 ML VIAL IV ONE (10:13)
[2023-12-25] MEDS ORDERED: VANCOMYCIN POST DIALYSIS 500MG IV PRN (11:00)
[2023-12-25] MEDS: APIXABAN 5 MG TABLET PO SCH (11:01)
[2023-12-25] MEDS: hydrALAZINE HCL 25 MG TABLET PO SCH (11:02)
[2023-12-25] MEDS: CARVEDILOL 12.5 MG TABLET PO SCH (11:02)
[2023-12-25] MEDS ORDERED: TOBRAMYCIN OPHTH 5ML 5 ML BOTTLE EACHEYE PRN (11:30)
[2023-12-25 12:43] VITALS: BP 121/73
[2023-12-25] MEDS: SEVELAMER CARBONATE 800 MG TABLET PO SCH (12:43)
[2023-12-25] MEDS: TOBRAMYCIN OPHTH 5ML 5 ML BOTTLE EACHEYE SCH (12:43)
[2023-12-25] MEDS ORDERED: CEFEPIME 1 GM in IV D5W 50 ML IV SCH (17:00)
[2023-12-25] MEDS ORDERED: MIRTAZAPINE 15 MG TABLET PO SCH (18:00)
[2023-12-26] MEDS ORDERED: PANTOPRAZOLE 40 MG TABLET.DR PO SCH (07:30)
== END 2023-12-25 15:30 | disposition left against medical advice (07) | DRG 199 ==
LOC: ER 06:47 → TELE 10:09
PROVIDERS: ADMIT Internal Medicine; ATTEND Internal Medicine
PROC: 5A1D70Z Performance of Urinary Filtration, Intermittent, Less than 6 Hours Per Day (ICD-10-PCS; principal; 2023-12-25)
DX: I16.1 Hypertensive emergency (principal); J18.9 Pneumonia, unspecified organism; N18.6 End stage renal disease; E83.39 Other disorders of phosphorus metabolism; I12.0 Hypertensive chronic kidney disease with stage 5 chronic kidney disease or end stage renal disease; Z99.2 Dependence on renal dialysis; F10.10 Alcohol abuse, uncomplicated; Y90.9 Presence of alcohol in blood, level not specified; W34.00XS Accidental discharge from unspecified firearms or gun, sequela; Z88.2 Allergy status to sulfonamides; Z79.899 Other long term (current) drug therapy; Z91.158 Patient's noncompliance with renal dialysis for other reason; D64.9 Anemia, unspecified; F11.90 Opioid use, unspecified, uncomplicated; H10.89 Other conjunctivitis; Y95 Nosocomial condition
CPT/HCPCS: 36415; 71045-TC; 80048-TC; 80076-TC; 83605-TC; 84100-TC; 85025-TC; 87040-TC; 87081-TC; 90935-TC; A4223; G0378; J0692; J2543; J3370; J7050; J7060; Q9967

== ENCOUNTER 2023-12-25 22:15 | Inpatient (IN) | payer MEDICAID ==
[~2023-12-25] VITALS: Ht 170.2 cm; Wt 61.2 kg
[~2023-12-25 22:15] MED LIST changes: +HYDR-4076 PO; +NIFE-34 PO; +SEVE800T28 PO
[2023-12-26 03:47] LABS: BASOPHILS # (AUTO) 0.1 K/uL (0.0-0.2); BASOPHILS % (AUTO) 0.7 % (0.0-2.0); EOSINOPHILS # (AUTO) 0.3 K/uL (0.0-0.7); EOSINOPHILS % (AUTO) 2.3 % (0.0-6.0); HEMATOCRIT 31 % (39-51); HEMOGLOBIN 9.8 g/dL (13.5-17.5); LYMPHOCYTES % (AUTO) 6.9 % (20.0-44.0); MEAN CORPUSCULAR HEMOGLOBIN 28 PG (26.0-33.0); MEAN CORPUSCULAR HGB CONC 31 g/dl (31.0-36.0); MEAN CORPUSCULAR VOLUME 88 fL (80-96); MONOCYTES # (AUTO) 0.5 K/uL (0.1-1.30); MONOCYTES % (AUTO) 3.4 % (2.0-12.0); NEUTROPHILS # (AUTO) 13.1 K/uL (1.8-8.9); NEUTROPHILS % (AUTO) 86.7 % (43.0-81.0); PLATELET COUNT (AUTO) 530 K/uL (150-450); RED BLOOD CELL COUNT(AUTO) 3.56 MIL/uL (4.5-6.0); RED CELL DISTRIBUTION WIDTH 15.8 % (11.5-15.0); WHITE BLOOD COUNT (AUTO) 15.1 K/uL (4.3-11.0)
[2023-12-26] MEDS ORDERED: IOHEXOL-350 100 ML VIAL IV ONE (03:51)
[2023-12-26] MEDS ORDERED: CT SWABBABLE VALVE TRANS SET 1 EA INFUS.SET MC ONE (03:51)
[2023-12-26] MEDS ORDERED: IV NS 0.9% 250 ML IV ONE (03:51)
[2023-12-26 04:00] LABS: INR 1.08 (0.91-1.10); PARTIAL THROMBOPLASTIN TIME 46.4 SEC (24.3-34.3); PROTHROMBIN TIME 11.4 SECS (9.2-11.1)
[2023-12-26 04:12] LABS: LACTIC ACID 0.6 mmol/L (0.4-2.0)
[2023-12-26 04:21] LABS: ALANINE AMINOTRANSFERASE < 6 U/L (12-78); ALBUMIN 2.2 g/dL (3.4-5.0); ALKALINE PHOSPHATASE 127 U/L (46-116); ASPARTATE AMINOTRANSFERASE 6 U/L (15-37); BILIRUBIN,DIRECT 0.1 mg/dL (0.0-0.2); BILIRUBIN,TOTAL 0.3 mg/dL (0.2-1.0); CALCIUM, SERUM 9.3 mg/dL (8.5-10.1); CARBON DIOXIDE 24 mmol/L (21-32); CHLORIDE 98 mmol/L (98-107); GLUCOSE 84 mg/dL (74-106); POTASSIUM 3.9 mmol/L (3.5-5.1); SODIUM SERUM 139 mmol/L (136-145); TOTAL PROTEIN, SERUM 7.5 g/dL (6.4-8.2); UREA NITROGEN, BLOOD 60 mg/dL (7-18)
[2023-12-26 04:30] LABS: CREATININE 9.9 mg/dL (0.6-1.3)
[2023-12-26] MEDS ORDERED: PIPERACI/TAZO 3.375GM/D5W 50ML PB IV ONE (04:47)
[2023-12-26] MEDS: PIPERACILLIN /TAZOBACTAM 3.375 G in IV D5W 50 ML IV ONE (04:55)
[2023-12-26] MEDS ORDERED: IV NS 0.9% 1,000 ML IV PRN (06:30)
[2023-12-26] MEDS ORDERED: ENOXAPARIN SODIUM 40 MG/0.4 ML DISP.SYRIN SQ SCH (06:30)
[2023-12-26] MEDS ORDERED: ONDANSETRON HCL/PF 4 MG/2 ML VIAL IVP PRN (06:30)
[2023-12-26] MEDS: VANCOMYCIN 1 GM in IV D5W 250 ML IV ONE (07:14)
[2023-12-26] MEDS ORDERED: VANCOMYCIN POST DIALYSIS 500MG IV PRN (07:30)
[2023-12-26 08:16] VITALS: O2SAT 99
[2023-12-26 10:00] VITALS: BP 180/105; TEMP 97.7; O2SAT 98
[2023-12-26] MEDS: PANTOPRAZOLE 40 MG VIAL IV SCH (10:06)
[2023-12-26] MEDS ORDERED: HEPARIN SODIUM, PORCINE 5000 UNITS/1 ML VIAL SQ SCH (11:53)
[2023-12-26] MEDS: PIPERACILLIN /TAZOBACTAM 2.25 G in IV D5W 50 ML IV SCH (12:22)
[2023-12-26] MEDS: ACETAMINOPHEN 325 MG TABLET PO PRN (12:50)
[2023-12-26] MEDS: PANTOPRAZOLE 40 MG TABLET.DR PO SCH (13:00)
[2023-12-26] MEDS: hydrALAZINE HCL 25 MG TABLET PO SCH (13:10)
[2023-12-26] MEDS: SEVELAMER CARBONATE 800 MG TABLET PO SCH (13:10)
[2023-12-26] MEDS: HEPARIN SODIUM, PORCINE 5000 UNITS/1 ML VIAL SQ SCH (13:12)
[2023-12-26] MEDS: NICOTINE PATCH (14MG) 14 MG PATCH.TD24 TD SCH (14:20)
[2023-12-26 15:34] LABS: BILIRUBIN,URINE NEGATIVE (NEGATIVE); BLOOD, URINE 3+ Ery/uL (NEGATIVE); COLOR,URINE YELLOW (YELLOW); KETONES,URINE TRACE mg/dL (NEGATIVE); LEUKOCYTE ESTERASE ,URINE NEGATIVE (NEGATIVE); NITRITE, URINE POSITIVE (NEGATIVE); PH,URINE 7.5 (5.0-8.0); PROTEIN,URINE 3+ mg/dl (NEGATIVE); UGLUCOSE TRACE mg/dL (NEGATIVE); UROBILINOGEN,URINE 0.2 EU/dL (0.2)
[2023-12-26 15:38] LABS: APPEARANCE,URINE HAZY (CLEAR)
[2023-12-26 16:00] VITALS: BP 192/115; TEMP 98.8; O2SAT 98
[2023-12-26] MEDS: CARVEDILOL 12.5 MG TABLET PO SCH (16:08)
[2023-12-26] MEDS: NIFEDIPINE XL 60 MG TAB.ER.24 PO SCH (16:09)
[2023-12-26 17:11] LABS: ADD URINE CULTURE YES; BACTERIA,URINE Few /HPF (None Seen); RBC,URINE TOO NUMEROUS TO COUN /HPF (0-2); SQUAMOUS EPITHELIAL CELL,UR None Seen /HPF (None Seen); WBC,URINE 0-2 /HPF (0-3)
[2023-12-26] MEDS: MIRTAZAPINE 15 MG TABLET PO SCH (17:23)
[2023-12-26] MEDS: ALPRAZOLAM 0.25 MG TABLET PO PRN (18:35)
[2023-12-26 21:02] VITALS: BP 173/105; TEMP 98.2; O2SAT 96
== END 2023-12-26 23:20 | disposition left against medical advice (07) | DRG 720 ==
LOC: ER 22:16 → TELE 12-26 08:06
PROVIDERS: ADMIT Internal Medicine; ATTEND Internal Medicine
PROC: 5A1D70Z Performance of Urinary Filtration, Intermittent, Less than 6 Hours Per Day (ICD-10-PCS; principal; 2023-12-26)
DX: A41.9 Sepsis, unspecified organism (principal); J96.01 Acute respiratory failure with hypoxia; I13.2 Hypertensive heart and chronic kidney disease with heart failure and with stage 5 chronic kidney disease, or end stage renal disease; N18.6 End stage renal disease; J18.9 Pneumonia, unspecified organism; D63.1 Anemia in chronic kidney disease; I50.9 Heart failure, unspecified; Z79.899 Other long term (current) drug therapy; Z99.2 Dependence on renal dialysis; Z87.891 Personal history of nicotine dependence; F19.10 Other psychoactive substance abuse, uncomplicated; Y95 Nosocomial condition; F41.9 Anxiety disorder, unspecified; I25.10 Atherosclerotic heart disease of native coronary artery without angina pectoris; I25.2 Old myocardial infarction; H10.89 Other conjunctivitis; Z87.01 Personal history of pneumonia (recurrent); Z53.29 Procedure and treatment not carried out because of patient's decision for other reasons; I16.1 Hypertensive emergency; Z88.2 Allergy status to sulfonamides; Z91.199 Patient's noncompliance with other medical treatment and regimen due to unspecified reason
CPT/HCPCS: 36415; 71045-TC; 80048-TC; 80076-TC; 81001; 83605-TC; 84484-TC; 85025-TC; 85730-TC; 87040-TC; 87086-TC; 93307-TC; A4223; C9113; G0378; J1644; J2543; J3370; J7050; J7060; Q9967

== ENCOUNTER 2024-01-19 22:56 | Inpatient (IN) | payer MEDICAID ==
[~2024-01-19] VITALS: Ht 172.7 cm; Wt 66.2 kg
[~2024-01-19 22:56] MED LIST changes: -AMOX-430 PO; -NIFE-35 PO; -PANT40TA2 PO
[2024-01-19] MEDS ORDERED: NALOXONE PREFILLED SYRINGE 2 MG/2 ML SYRINGE ONE ×2 (22:58→23:02)
[2024-01-19] MEDS: NALOXONE PREFILLED SYRINGE 2 MG/2 ML SYRINGE IV ONE (23:00)
[2024-01-19] MEDS ORDERED: ONDANSETRON HCL/PF 4 MG/2 ML VIAL ONE (23:02)
[2024-01-19] MEDS ORDERED: MIDAZOLAM HCL 5 MG/5ML VIAL ONE (23:08)
[2024-01-19] MEDS: ROCURONIUM BROMIDE 100 MG/10 ML VIAL IV ONE (23:10)
[2024-01-19] MEDS: ETOMIDATE 2 MG/ML VIAL IV ONE (23:10)
[2024-01-19] MEDS ORDERED: PROPOFOL 100 ML ONE (23:13)
[2024-01-19] MEDS: IV NS 0.9% 1,000 ML BAG IV ONE (23:15)
[2024-01-19] MEDS: PROPOFOL 100 ML IV PRN (23:25)
[2024-01-19 23:41] LABS: BASOPHILS # (AUTO) 0.1 K/uL (0.0-0.2); BASOPHILS % (AUTO) 0.9 % (0.0-2.0); EOSINOPHILS # (AUTO) 0.9 K/uL (0.0-0.7); EOSINOPHILS % (AUTO) 5.3 % (0.0-6.0); HEMATOCRIT 27 % (39-51); HEMOGLOBIN 8.4 g/dL (13.5-17.5); LYMPHOCYTES # (AUTO) 2.4 K/uL (0.8-4.8); LYMPHOCYTES % (AUTO) 13.7 % (20.0-44.0); MEAN CORPUSCULAR HEMOGLOBIN 28 PG (26.0-33.0); MEAN CORPUSCULAR HGB CONC 31 g/dl (31.0-36.0); MEAN CORPUSCULAR VOLUME 90 fL (80-96); MONOCYTES # (AUTO) 0.7 K/uL (0.1-1.30); MONOCYTES % (AUTO) 4.1 % (2.0-12.0); NEUTROPHILS # (AUTO) 13.3 K/uL (1.8-8.9); PLATELET COUNT (AUTO) 391 K/uL (150-450); RED BLOOD CELL COUNT(AUTO) 3.01 MIL/uL (4.5-6.0); RED CELL DISTRIBUTION WIDTH 16.9 % (11.5-15.0); WHITE BLOOD COUNT (AUTO) 17.5 K/uL (4.3-11.0)
[2024-01-19 23:48] LABS: CALCIUM, SERUM 8.5 mg/dL (8.5-10.1); CARBON DIOXIDE 21 mmol/L (21-32); CHLORIDE 102 mmol/L (98-107); GLUCOSE 228 mg/dL (74-106); POTASSIUM 5.8 mmol/L (3.5-5.1); SODIUM SERUM 141 mmol/L (136-145)
[2024-01-19] MEDS ORDERED: hydrALAZINE HCL IV 20 MG VIAL ONE (23:48)
[2024-01-19] MEDS: hydrALAZINE HCL IV 20 MG VIAL IV ONE (23:52)
[2024-01-19 23:53] LABS: CREATININE 8.3 mg/dL (0.6-1.3); UREA NITROGEN, BLOOD 82 mg/dL (7-18)
[2024-01-19 23:54] LABS: ALANINE AMINOTRANSFERASE 10 U/L (12-78); ALBUMIN 2.4 g/dL (3.4-5.0); ALCOHOL, BLOOD < 3 mg/dL (0-10); ALKALINE PHOSPHATASE 98 U/L (46-116); ASPARTATE AMINOTRANSFERASE 10 U/L (15-37); BILIRUBIN,DIRECT 0.1 mg/dL (0.0-0.2); BILIRUBIN,TOTAL 0.3 mg/dL (0.2-1.0); TOTAL PROTEIN, SERUM 7.7 g/dL (6.4-8.2)
[2024-01-19 23:55] LABS: ACETAMINOPHEN <10 ug/ml (10-30)
[2024-01-20] VITALS (68 sets, daily range): BP systolic 106–211; BP diastolic 69–122; TEMP 98.7–99.1; O2SAT 98–100
[2024-01-20 00:27] LABS: APPEARANCE,URINE CLEAR (CLEAR); BILIRUBIN,URINE NEGATIVE (NEGATIVE); BLOOD, URINE 3+ Ery/uL (NEGATIVE); COLOR,URINE YELLOW (YELLOW); KETONES,URINE NEGATIVE (NEGATIVE); LEUKOCYTE ESTERASE ,URINE NEGATIVE (NEGATIVE); NITRITE, URINE NEGATIVE (NEGATIVE); PROTEIN,URINE 3+ mg/dl (NEGATIVE); UGLUCOSE 2+ mg/dL (NEGATIVE); UROBILINOGEN,URINE 0.2 EU/dL (0.2)
[2024-01-20] MEDS: hydrALAZINE HCL IV 20 MG VIAL IV ONE ×2 (00:30→06:54)
[2024-01-20] MEDS: FUROSEMIDE 40 MG/4 ML VIAL IV ONE (00:30)
[2024-01-20] MEDS: INSULIN REGULAR, HUMAN 100 UNIT/ML 10 ML VIAL IV ONE (00:30)
[2024-01-20] MEDS: DEXTROSE 50%-WATER 50 ML DISP.SYRIN IV ONE (00:30)
[2024-01-20] MEDS: ASPIRIN 300 MG/SUPP.RECT RC ONE (00:30)
[2024-01-20] MEDS: CALCIUM CHLORIDE 1,000 MG/10 ML DISP.SYRIN IV ONE (00:30)
[2024-01-20] MEDS: SODIUM BICARBONATE SYR 50 MEQ/50 ML DISP.SYRIN IV ONE (00:30)
[2024-01-20 00:42] LABS: AMPHETAMINE, URINE NEGATIVE (NEGATIVE); BARBITURATE, URINE NEGATIVE (NEGATIVE); BENZODIAZEPINE, URINE NEGATIVE (NEGATIVE); CANNABINOID, URINE NEGATIVE (NEGATIVE); COCCAINE, URINE NEGATIVE (NEGATIVE); OPIATE, URINE NEGATIVE (NEGATIVE); PHENCYCLIDINE SCREEN,URINE NEGATIVE (NEGATIVE)
[2024-01-20] MEDS ORDERED: FUROSEMIDE 40 MG/4 ML VIAL ONE (00:49)
[2024-01-20] MEDS ORDERED: CALCIUM CHLORIDE 1,000 MG/10 ML DISP.SYRIN ONE (00:49)
[2024-01-20] MEDS ORDERED: CEFEPIME 1 GM VIAL ONE (00:49)
[2024-01-20] MEDS ORDERED: DEXTROSE 50%-WATER 50 ML DISP.SYRIN ONE ×2 (00:49→02:46)
[2024-01-20] MEDS ORDERED: SODIUM BICARBONATE SYR 50 MEQ/50 ML DISP.SYRIN ONE ×2 (00:49→01:32)
[2024-01-20] MEDS ORDERED: INSULIN REGULAR, HUMAN 100 UNIT/ML 10 ML VIAL ONE (00:50)
[2024-01-20] MEDS ORDERED: ASPIRIN 300 MG/SUPP.RECT RC ONE (00:50)
[2024-01-20 00:51] LABS: ADD URINE CULTURE YES; BACTERIA,URINE Rare /HPF (None Seen); RBC,URINE 51-80 /HPF (0-2); SQUAMOUS EPITHELIAL CELL,UR Rare /HPF (None Seen)
[2024-01-20 00:58] LABS: ABG OXYGEN SATURATION 94.7 % (92.0-98.5); ABG PH 7.179 (7.350-7.450); ABG TOTAL HEMOGLOBIN 9.9 G/dL (13.5-18.0); COHb 1.1 % (0.5-1.5); MetHb 0.1 % (0.0-1.5); O2Hb 93.6 % (94.0-97.0); PEEP,BG 5 cm H2O; SITE, ABG Left Radial; VENT MODE, BG AC 18 500 60% +5; VT, ABG 500 mL
[2024-01-20] MEDS: CEFEPIME 1 GM in IV D5W 50 ML IV ONE (01:00)
[2024-01-20] MEDS: SODIUM BICARBONATE SYR 100 MEQ in IV D5W 1,000 ML IV ONE (01:30)
[2024-01-20] MEDS: DEXTROSE 50%-WATER 50 ML DISP.SYRIN IVP ONE ×2 (02:49→10:33)
[2024-01-20] MEDS ORDERED: PROPOFOL 100 ML ONE (02:51)
[2024-01-20] MEDS ORDERED: NTG 50 MG/D5W250 ML BOTTL 250 ML IV ONE (02:56)
[2024-01-20] MEDS ORDERED: ACETAMINOPHEN 325 MG TABLET PO PRN (03:00)
[2024-01-20] MEDS ORDERED: IPRATROPIUM NEB FS 0.5 MG/2.5 ML AMPUL.NEB NEB PRN (03:00)
[2024-01-20] MEDS ORDERED: MAG HYDROX/AL HYDROX/SIMETH 30 ML UDC PO PRN (03:00)
[2024-01-20] MEDS ORDERED: ZOLPIDEM TARTRATE 5 MG TABLET PO PRN (03:00)
[2024-01-20] MEDS ORDERED: ENOXAPARIN SODIUM 40 MG/0.4 ML DISP.SYRIN SQ SCH (03:00)
[2024-01-20] MEDS ORDERED: ALBUTEROL FS 2.5 MG/3 ML VIAL.NEB NEB PRN (03:00)
[2024-01-20] MEDS ORDERED: MAGNESIUM HYDROXIDE 30 ML UDC PO PRN (03:00)
[2024-01-20] MEDS: NTG 50 MG/D5W250 ML BOTTL 250 ML IV PRN ×2 (03:04→06:04)
[2024-01-20] MEDS: PROPOFOL 100 ML IV PRN ×2 (06:03→08:01)
[2024-01-20] MEDS: Sodium Bicarbonate 100 MEQ in IV D5W 1,000 ML IV SCH ×2 (06:06→12:30)
[2024-01-20 08:09] LABS: BASOPHILS # (AUTO) 0.1 K/uL (0.0-0.2); BASOPHILS % (AUTO) 0.6 % (0.0-2.0); EOSINOPHILS % (AUTO) 0.2 % (0.0-6.0); HEMATOCRIT 23 % (39-51); HEMOGLOBIN 7.5 g/dL (13.5-17.5); LYMPHOCYTES # (AUTO) 0.9 K/uL (0.8-4.8); LYMPHOCYTES % (AUTO) 6.4 % (20.0-44.0); MEAN CORPUSCULAR HEMOGLOBIN 28 PG (26.0-33.0); MEAN CORPUSCULAR HGB CONC 33 g/dl (31.0-36.0); MEAN CORPUSCULAR VOLUME 86 fL (80-96); MONOCYTES # (AUTO) 0.3 K/uL (0.1-1.30); MONOCYTES % (AUTO) 2.6 % (2.0-12.0); NEUTROPHILS # (AUTO) 12.2 K/uL (1.8-8.9); NEUTROPHILS % (AUTO) 90.2 % (43.0-81.0); PLATELET COUNT (AUTO) 335 K/uL (150-450); RED BLOOD CELL COUNT(AUTO) 2.67 MIL/uL (4.5-6.0); RED CELL DISTRIBUTION WIDTH 16.7 % (11.5-15.0); WHITE BLOOD COUNT (AUTO) 13.5 K/uL (4.3-11.0)
[2024-01-20 08:30] LABS: ALBUMIN 2.1 g/dL (3.4-5.0); BILIRUBIN,DIRECT 0.1 mg/dL (0.0-0.2); BILIRUBIN,TOTAL 0.3 mg/dL (0.2-1.0); CALCIUM, SERUM 8.9 mg/dL (8.5-10.1); TOTAL PROTEIN, SERUM 6.8 g/dL (6.4-8.2)
[2024-01-20 08:31] LABS: THYROID STIMULATING HORMONE 4.23 uIU/mL (0.358-3.74)
[2024-01-20 08:37] LABS: POTASSIUM 7.5 mmol/L (3.5-5.1)
[2024-01-20 08:38] LABS: CREATININE 8.2 mg/dL (0.6-1.3); PHOSPHORUS 8.5 mg/dL (2.5-4.9)
[2024-01-20] MEDS ORDERED: DOCU100T2 PO (09:02)
[2024-01-20] MEDS ORDERED: MIRT-90 PO (09:02)
[2024-01-20] MEDS: PANTOPRAZOLE 40 MG VIAL IV SCH (09:52)
[2024-01-20] MEDS: HEPARIN SODIUM, PORCINE 5000 UNITS/1 ML VIAL SQ SCH (10:07)
[2024-01-20] MEDS: Calcium Gluconate 1GM/10ML 4.65 MEQ in IV NS 0.9% 100 ML IV ONE (10:28)
[2024-01-20] MEDS ORDERED: Calcium Gluconate 0.465 MEQ/ML VIAL IV ONE (10:30)
[2024-01-20] MEDS: Z GUARD REMEDY 4 OZ OINT TP PRN (10:34)
[2024-01-20] MEDS: INSULIN REGULAR, HUMAN 100 UNIT/ML 3 ML VIAL IV ONE (10:42)
[2024-01-20] MEDS ORDERED: ETOMIDATE 2 MG/ML VIAL IV ONE (11:31)
[2024-01-20] MEDS: hydrALAZINE HCL IV 20 MG VIAL IV PRN (14:27)
[2024-01-21] VITALS (96 sets, daily range): BP systolic 96–182; BP diastolic 52–125; TEMP 97.5–98.8; O2SAT 99–100
[2024-01-21] MEDS: CEFEPIME 1 GM in IV D5W 50 ML IV SCH (00:09)
[2024-01-21 04:32] LABS: BASOPHILS # (AUTO) 0.2 K/uL (0.0-0.2); BASOPHILS % (AUTO) 1.3 % (0.0-2.0); EOSINOPHILS # (AUTO) 0.3 K/uL (0.0-0.7); EOSINOPHILS % (AUTO) 1.9 % (0.0-6.0); HEMATOCRIT 23 % (39-51); HEMOGLOBIN 7.5 g/dL (13.5-17.5); LYMPHOCYTES # (AUTO) 1.6 K/uL (0.8-4.8); LYMPHOCYTES % (AUTO) 12.4 % (20.0-44.0); MEAN CORPUSCULAR HEMOGLOBIN 28 PG (26.0-33.0); MEAN CORPUSCULAR HGB CONC 33 g/dl (31.0-36.0); MEAN CORPUSCULAR VOLUME 86 fL (80-96); MONOCYTES % (AUTO) 7.5 % (2.0-12.0); NEUTROPHILS # (AUTO) 10.1 K/uL (1.8-8.9); NEUTROPHILS % (AUTO) 76.9 % (43.0-81.0); PLATELET COUNT (AUTO) 299 K/uL (150-450); RED BLOOD CELL COUNT(AUTO) 2.68 MIL/uL (4.5-6.0); RED CELL DISTRIBUTION WIDTH 16.1 % (11.5-15.0); WHITE BLOOD COUNT (AUTO) 13.2 K/uL (4.3-11.0)
[2024-01-21 05:01] LABS: CALCIUM, SERUM 8.8 mg/dL (8.5-10.1); POTASSIUM 5.1 mmol/L (3.5-5.1)
[2024-01-21 05:26] LABS: MAGNESIUM 1.8 mg/dL (1.8-2.4); PHOSPHORUS 7.2 mg/dL (2.5-4.9)
[2024-01-21] MEDS: PRECEDEX 400 MCG/100 ML BOTTLE 100 ML IV PRN (07:37)
[2024-01-21] MEDS: NTG 50 MG/D5W250 ML BOTTL 250 ML IV PRN (09:15)
[2024-01-21] MEDS: ALTEPLASE CATHFLO 2 MG/VIAL XX ONE (16:39)
[2024-01-21] MEDS: ALBUMIN 25% 25 GM in PREMIX 1 EA IV PRN (16:39)
[2024-01-22] VITALS (53 sets, daily range): BP systolic 109–206; BP diastolic 62–109; TEMP 97.9–98.4; O2SAT 90–100
[2024-01-22 04:24] LABS: BASOPHILS # (AUTO) 0.1 K/uL (0.0-0.2); BASOPHILS % (AUTO) 1.3 % (0.0-2.0); EOSINOPHILS # (AUTO) 0.4 K/uL (0.0-0.7); EOSINOPHILS % (AUTO) 6.6 % (0.0-6.0); LYMPHOCYTES # (AUTO) 1.2 K/uL (0.8-4.8); LYMPHOCYTES % (AUTO) 17.4 % (20.0-44.0); MEAN CORPUSCULAR HEMOGLOBIN 28 PG (26.0-33.0); MEAN CORPUSCULAR HGB CONC 33 g/dl (31.0-36.0); MEAN CORPUSCULAR VOLUME 86 fL (80-96); MONOCYTES # (AUTO) 0.7 K/uL (0.1-1.30); NEUTROPHILS # (AUTO) 4.3 K/uL (1.8-8.9); NEUTROPHILS % (AUTO) 64.7 % (43.0-81.0); PLATELET COUNT (AUTO) 225 K/uL (150-450); RED BLOOD CELL COUNT(AUTO) 2.29 MIL/uL (4.5-6.0); RED CELL DISTRIBUTION WIDTH 16.6 % (11.5-15.0); WHITE BLOOD COUNT (AUTO) 6.6 K/uL (4.3-11.0)
[2024-01-22 04:29] LABS: HEMATOCRIT 20 % (39-51); HEMOGLOBIN 6.4 g/dL (13.5-17.5)
[2024-01-22 04:41] LABS: CALCIUM, SERUM 8.8 mg/dL (8.5-10.1); CREATININE 4.6 mg/dL (0.6-1.3); POTASSIUM 4.7 mmol/L (3.5-5.1)
[2024-01-22] MEDS ORDERED: DC PROPOFOL WHEN EXTUBATED XX PRN (10:00)
[2024-01-22] MEDS ORDERED: PROPOFOL 100 ML IV PRN (10:00)
[2024-01-22] MEDS: ONDANSETRON HCL/PF 4 MG/2 ML VIAL IVP PRN (11:52)
[2024-01-22] MEDS: NIFEdipine XL (30MG) 30 MG TAB PO SCH (11:52)
[2024-01-22] MEDS: CARVEDILOL 12.5 MG TABLET PO SCH (11:53)
[2024-01-22] MEDS: hydrALAZINE HCL 25 MG TABLET PO SCH (11:53)
[2024-01-22 12:24] LABS: ANISOCYTOSIS 1+; BASOPHILS % (MANUAL) 0 % (0.0-2.0); EOSINOPHILS % (MANUAL) 5 % (0-4); LYMPHOCYTES % (MANUAL) 15 % (16-48); MONOCYTES % (MANUAL) 11 % (0-11.0); NEUTROPHILS % (MANUAL) 69 (42-76); PLATELET ESTIMATE ADEQUATE; STOMATOCYTES 1+
== END 2024-01-22 18:53 | disposition left against medical advice (07) | DRG 812 ==
LOC: ER 23:11 → ICU 01-20 02:33
PROVIDERS: ADMIT Nurse Practitioner Family; ATTEND Internal Medicine
PROC: 5A1945Z Respiratory Ventilation, 24-96 Consecutive Hours (ICD-10-PCS; principal; 2024-01-20)
PROC: 05HB33Z Insertion of Infusion Device into Right Basilic Vein, Percutaneous Approach (ICD-10-PCS; 2024-01-20)
PROC: 0BH17EZ Insertion of Endotracheal Airway into Trachea, Via Natural or Artificial Opening (ICD-10-PCS; 2024-01-20)
PROC: 5A1D70Z Performance of Urinary Filtration, Intermittent, Less than 6 Hours Per Day (ICD-10-PCS; 2024-01-20)
DX: T40.411A Poisoning by fentanyl or fentanyl analogs, accidental (unintentional), initial encounter (principal); J96.01 Acute respiratory failure with hypoxia; J69.0 Pneumonitis due to inhalation of food and vomit; I21.A1 Myocardial infarction type 2; G93.40 Encephalopathy, unspecified; Y92.009 Unspecified place in unspecified non-institutional (private) residence as the place of occurrence of the external cause; I12.0 Hypertensive chronic kidney disease with stage 5 chronic kidney disease or end stage renal disease; I16.0 Hypertensive urgency; N18.6 End stage renal disease; F10.10 Alcohol abuse, uncomplicated; Y90.9 Presence of alcohol in blood, level not specified; F19.10 Other psychoactive substance abuse, uncomplicated; Z87.828 Personal history of other (healed) physical injury and trauma; W34.00XA Accidental discharge from unspecified firearms or gun, initial encounter; Y92.9 Unspecified place or not applicable; Z88.2 Allergy status to sulfonamides; Z99.11 Dependence on respirator [ventilator] status; Z99.2 Dependence on renal dialysis; Z79.899 Other long term (current) drug therapy; E87.5 Hyperkalemia; E88.09 Other disorders of plasma-protein metabolism, not elsewhere classified; D64.9 Anemia, unspecified; I25.2 Old myocardial infarction; M89.8X9 Other specified disorders of bone, unspecified site
CPT/HCPCS: 31720; 36415; 36600; 71045-TC; 80048-TC; 80076-TC; 81001; 82803-TC; 82962-TC; 83735-TC; 83880; 84100-TC; 84443-TC; 84478-TC; 84484-TC; 85025-TC; 86850-TC; 87081-TC; 90935-TC; 94002-TC; 94003-TC; 94760-TC; 94762-TC; 94799-TC; 98960; 99082-TC; A4216; A4223; A6403; C9113; G0378; G0480; J0360; J0610; J0692; J1644; J1815; J1940; J2250; J2310; J2405; J2997; J3490; J7030; J7060; J7070; P9047

== ENCOUNTER 2024-01-23 19:07 | Inpatient (IN) | payer MEDICAID ==
[~2024-01-23] VITALS: Ht 172.7 cm; Wt 75.7 kg
[~2024-01-23 19:07] MED LIST changes: -ALPR0.255 PO; +DOCU100T2 PO; +MIRT-90 PO; -MIRT7.5T10 PO
[2024-01-23 20:11] LABS: BASOPHILS # (AUTO) 0.1 K/uL (0.0-0.2); EOSINOPHILS # (AUTO) 0.2 K/uL (0.0-0.7); EOSINOPHILS % (AUTO) 1.4 % (0.0-6.0); HEMATOCRIT 27 % (39-51); HEMOGLOBIN 8.9 g/dL (13.5-17.5); LYMPHOCYTES % (AUTO) 6.7 % (20.0-44.0); MEAN CORPUSCULAR HEMOGLOBIN 28 PG (26.0-33.0); MEAN CORPUSCULAR HGB CONC 33 g/dl (31.0-36.0); MEAN CORPUSCULAR VOLUME 86 fL (80-96); MONOCYTES % (AUTO) 6.9 % (2.0-12.0); PLATELET COUNT (AUTO) 324 K/uL (150-450); RED BLOOD CELL COUNT(AUTO) 3.16 MIL/uL (4.5-6.0); RED CELL DISTRIBUTION WIDTH 16.6 % (11.5-15.0); WHITE BLOOD COUNT (AUTO) 14.3 K/uL (4.3-11.0)
[2024-01-23 20:25] LABS: INR 1.05 (0.91-1.10); PARTIAL THROMBOPLASTIN TIME 35.6 SEC (24.3-34.3); PROTHROMBIN TIME 11.1 SECS (9.2-11.1)
[2024-01-23 20:27] LABS: CALCIUM, SERUM 9.3 mg/dL (8.5-10.1); CARBON DIOXIDE 25 mmol/L (21-32); CHLORIDE 98 mmol/L (98-107); CREATININE 7.1 mg/dL (0.6-1.3); GLUCOSE 85 mg/dL (74-106); POTASSIUM 3.9 mmol/L (3.5-5.1); SODIUM SERUM 144 mmol/L (136-145); UREA NITROGEN, BLOOD 57 mg/dL (7-18)
[2024-01-23 20:28] LABS: SERUM AMMONIA 3 umol/L (11-32)
[2024-01-23 20:34] LABS: ALANINE AMINOTRANSFERASE 13 U/L (12-78); ALBUMIN 2.7 g/dL (3.4-5.0); ALCOHOL, BLOOD < 3 mg/dL (0-10); ALKALINE PHOSPHATASE 98 U/L (46-116); ASPARTATE AMINOTRANSFERASE 20 U/L (15-37); BILIRUBIN,DIRECT 0.2 mg/dL (0.0-0.2); BILIRUBIN,TOTAL 0.6 mg/dL (0.2-1.0); TOTAL PROTEIN, SERUM 7.8 g/dL (6.4-8.2)
[2024-01-23 21:46] LABS: AMPHETAMINE, URINE NEGATIVE (NEGATIVE); BARBITURATE, URINE NEGATIVE (NEGATIVE); BENZODIAZEPINE, URINE NEGATIVE (NEGATIVE); CANNABINOID, URINE NEGATIVE (NEGATIVE); COCCAINE, URINE NEGATIVE (NEGATIVE); OPIATE, URINE NEGATIVE (NEGATIVE); PHENCYCLIDINE SCREEN,URINE NEGATIVE (NEGATIVE)
[2024-01-23] MEDS ORDERED: hydrALAZINE HCL IV 20 MG VIAL ONE (21:47)
[2024-01-23] MEDS ORDERED: Z GUARD REMEDY 4 OZ OINT TP PRN (22:00)
[2024-01-23] MEDS ORDERED: MAG HYDROX/AL HYDROX/SIMETH 30 ML UDC PO PRN (22:00)
[2024-01-23] MEDS ORDERED: NALOXONE HCL 0.4 MG/ML AMPUL IV PRN (22:00)
[2024-01-23] MEDS ORDERED: MAGNESIUM HYDROXIDE 30 ML UDC PO PRN (22:00)
[2024-01-23] MEDS: hydrALAZINE HCL IV 20 MG VIAL IV ONE (22:05)
[2024-01-24] VITALS (7 sets, daily range): BP systolic 186–198; BP diastolic 109–121; TEMP 97.8–99.3; O2SAT 93–96
[2024-01-24] MEDS ORDERED: CEFEPIME 1 GM VIAL ONE (01:28)
[2024-01-24] MEDS: CEFEPIME 1 GM in IV D5W 50 ML IV SCH ×2 (01:45→22:36)
[2024-01-24] MEDS: ONDANSETRON HCL/PF 4 MG/2 ML VIAL IVP PRN (02:12)
[2024-01-24] MEDS: hydrALAZINE HCL IV 20 MG VIAL IV ONE (04:03)
[2024-01-24 06:55] LABS: BASOPHILS # (AUTO) 0.1 K/uL (0.0-0.2); BASOPHILS % (AUTO) 0.8 % (0.0-2.0); EOSINOPHILS # (AUTO) 0.3 K/uL (0.0-0.7); HEMATOCRIT 27 % (39-51); HEMOGLOBIN 8.8 g/dL (13.5-17.5); LYMPHOCYTES # (AUTO) 1.3 K/uL (0.8-4.8); LYMPHOCYTES % (AUTO) 9.3 % (20.0-44.0); MEAN CORPUSCULAR HEMOGLOBIN 28 PG (26.0-33.0); MEAN CORPUSCULAR HGB CONC 33 g/dl (31.0-36.0); MEAN CORPUSCULAR VOLUME 86 fL (80-96); MONOCYTES # (AUTO) 1.1 K/uL (0.1-1.30); MONOCYTES % (AUTO) 8.3 % (2.0-12.0); NEUTROPHILS # (AUTO) 10.8 K/uL (1.8-8.9); NEUTROPHILS % (AUTO) 79.6 % (43.0-81.0); PLATELET COUNT (AUTO) 305 K/uL (150-450); RED CELL DISTRIBUTION WIDTH 16.9 % (11.5-15.0); WHITE BLOOD COUNT (AUTO) 13.6 K/uL (4.3-11.0)
[2024-01-24 07:26] LABS: CALCIUM, SERUM 9.3 mg/dL (8.5-10.1); MAGNESIUM 2.3 mg/dL (1.8-2.4); POTASSIUM 3.9 mmol/L (3.5-5.1)
[2024-01-24 07:27] LABS: PHOSPHORUS 11.8 mg/dL (2.5-4.9)
[2024-01-24 07:29] LABS: CREATININE 7.8 mg/dL (0.6-1.3)
[2024-01-24] MEDS: NICOTINE PATCH (14MG) 14 MG PATCH.TD24 TD SCH (08:14)
[2024-01-24] MEDS: hydrALAZINE HCL 25 MG TABLET PO SCH (08:15)
[2024-01-24] MEDS: SEVELAMER CARBONATE 800 MG TABLET PO SCH (08:15)
[2024-01-24] MEDS: MIRTAZAPINE 15 MG TABLET PO SCH ×2 (08:15→22:36)
[2024-01-24] MEDS: PANTOPRAZOLE 40 MG TABLET.DR PO SCH (08:15)
[2024-01-24] MEDS: CARVEDILOL 12.5 MG TABLET PO SCH (08:16)
[2024-01-24] MEDS: DOCUSATE SODIUM 100 MG CAPSULE PO SCH (08:17)
[2024-01-24] MEDS ORDERED: QUETIAPINE FUMARATE 25 MG TABLET PO PRN (11:30)
[2024-01-24] MEDS: NIFEDIPINE XL 60 MG TAB.ER.24 PO SCH (11:45)
[2024-01-24] MEDS: hydrALAZINE HCL 25 MG TABLET PO PRN (16:45)
[2024-01-24] MEDS: ACETAMINOPHEN 325 MG TABLET PO PRN (16:51)
[2024-01-25] VITALS (8 sets, daily range): BP systolic 130–177; BP diastolic 94–109; TEMP 97.6–98.8; O2SAT 92–99
[2024-01-25 07:15] LABS: BASOPHILS # (AUTO) 0.1 K/uL (0.0-0.2); BASOPHILS % (AUTO) 0.6 % (0.0-2.0); EOSINOPHILS # (AUTO) 0.5 K/uL (0.0-0.7); EOSINOPHILS % (AUTO) 2.6 % (0.0-6.0); HEMATOCRIT 30 % (39-51); HEMOGLOBIN 9.6 g/dL (13.5-17.5); LYMPHOCYTES # (AUTO) 1.4 K/uL (0.8-4.8); LYMPHOCYTES % (AUTO) 7.7 % (20.0-44.0); MEAN CORPUSCULAR HEMOGLOBIN 28 PG (26.0-33.0); MEAN CORPUSCULAR HGB CONC 32 g/dl (31.0-36.0); MEAN CORPUSCULAR VOLUME 87 fL (80-96); MONOCYTES # (AUTO) 1.2 K/uL (0.1-1.30); NEUTROPHILS # (AUTO) 14.5 K/uL (1.8-8.9); NEUTROPHILS % (AUTO) 82.1 % (43.0-81.0); PLATELET COUNT (AUTO) 279 K/uL (150-450); RED BLOOD CELL COUNT(AUTO) 3.42 MIL/uL (4.5-6.0); RED CELL DISTRIBUTION WIDTH 16.4 % (11.5-15.0); WHITE BLOOD COUNT (AUTO) 17.7 K/uL (4.3-11.0)
[2024-01-25 07:38] LABS: ALBUMIN 2.5 g/dL (3.4-5.0); BILIRUBIN,TOTAL 0.6 mg/dL (0.2-1.0); CALCIUM, SERUM 9.6 mg/dL (8.5-10.1); MAGNESIUM 2.6 mg/dL (1.8-2.4); POTASSIUM 4.5 mmol/L (3.5-5.1); TOTAL PROTEIN, SERUM 7.5 g/dL (6.4-8.2)
[2024-01-25 07:53] LABS: CREATININE 9.2 mg/dL (0.6-1.3)
[2024-01-25 07:54] LABS: PHOSPHORUS 12.7 mg/dL (2.5-4.9)
[2024-01-25 09:39] LABS: ADD URINE CULTURE NO; APPEARANCE,URINE CLEAR (CLEAR); BACTERIA,URINE Rare /HPF (None Seen); BILIRUBIN,URINE NEGATIVE (NEGATIVE); BLOOD, URINE 3+ Ery/uL (NEGATIVE); COLOR,URINE DARK YELLOW (YELLOW); KETONES,URINE 1+ mg/dL (NEGATIVE); LEUKOCYTE ESTERASE ,URINE NEGATIVE (NEGATIVE); NITRITE, URINE NEGATIVE (NEGATIVE); PROTEIN,URINE 3+ mg/dl (NEGATIVE); RBC,URINE 21-50 /HPF (0-2); SQUAMOUS EPITHELIAL CELL,UR Rare /HPF (None Seen); UGLUCOSE TRACE mg/dL (NEGATIVE); UROBILINOGEN,URINE 0.2 EU/dL (0.2)
[2024-01-25] MEDS: DOCUSATE SODIUM 100 MG CAPSULE PO SCH (17:19)
== END 2024-01-25 22:30 | disposition left against medical advice (07) | DRG 812 ==
LOC: ER 19:09 → TELE 22:17
PROC: 5A1D70Z Performance of Urinary Filtration, Intermittent, Less than 6 Hours Per Day (ICD-10-PCS; principal; 2024-01-25)
DX: T40.411A Poisoning by fentanyl or fentanyl analogs, accidental (unintentional), initial encounter (principal); J15.69 Pneumonia due to other Gram-negative bacteria; E87.20 Acidosis, unspecified; I12.0 Hypertensive chronic kidney disease with stage 5 chronic kidney disease or end stage renal disease; E44.0 Moderate protein-calorie malnutrition; E88.09 Other disorders of plasma-protein metabolism, not elsewhere classified; D63.8 Anemia in other chronic diseases classified elsewhere; F11.10 Opioid abuse, uncomplicated; Y92.538 Other ambulatory health services establishments as the place of occurrence of the external cause; N18.6 End stage renal disease; Z99.2 Dependence on renal dialysis; R41.82 Altered mental status, unspecified; Z59.01 Sheltered homelessness; F17.210 Nicotine dependence, cigarettes, uncomplicated; F32.9 Major depressive disorder, single episode, unspecified; F19.10 Other psychoactive substance abuse, uncomplicated; M89.8X9 Other specified disorders of bone, unspecified site; Z53.29 Procedure and treatment not carried out because of patient's decision for other reasons; E87.70 Fluid overload, unspecified; Z22.322 Carrier or suspected carrier of Methicillin resistant Staphylococcus aureus; Z79.899 Other long term (current) drug therapy; Z88.2 Allergy status to sulfonamides; Z91.158 Patient's noncompliance with renal dialysis for other reason; K21.9 Gastro-esophageal reflux disease without esophagitis; F41.9 Anxiety disorder, unspecified; Z87.440 Personal history of urinary (tract) infections
CPT/HCPCS: 36415; 71045-TC; 74018; 80048-TC; 80053-TC; 80076-TC; 81001; 82140-TC; 83605-TC; 83735-TC; 84100-TC; 84443-TC; 85025-TC; 85730-TC; 87040-TC; 87081-TC; 87086-TC; 90935-TC; 94760-TC; 94799-TC; 98960; G0378; G0480; J0360; J0692; J2405; J7030; J7050; J7060

== ENCOUNTER 2024-02-17 18:18 | Inpatient (IN) | payer MEDICAID ==
[~2024-02-17] VITALS: Ht 170.2 cm; Wt 70.8 kg
[2024-02-17 20:06] LABS: ALANINE AMINOTRANSFERASE 9 U/L (12-78); ALBUMIN 2.4 g/dL (3.4-5.0); ALKALINE PHOSPHATASE 97 U/L (46-116); ASPARTATE AMINOTRANSFERASE < 5 U/L (15-37); BILIRUBIN,DIRECT 0.1 mg/dL (0.0-0.2); BILIRUBIN,TOTAL 0.4 mg/dL (0.2-1.0); CALCIUM, SERUM 8.3 mg/dL (8.5-10.1); CARBON DIOXIDE 23 mmol/L (21-32); CHLORIDE 100 mmol/L (98-107); GLUCOSE 92 mg/dL (74-106); POTASSIUM 4.4 mmol/L (3.5-5.1); SODIUM SERUM 142 mmol/L (136-145); TOTAL PROTEIN, SERUM 6.4 g/dL (6.4-8.2)
[2024-02-17 20:07] LABS: UREA NITROGEN, BLOOD 80 mg/dL (7-18)
[2024-02-17 20:08] LABS: CREATININE 9.7 mg/dL (0.6-1.3)
[2024-02-17 20:10] LABS: BASOPHILS # (AUTO) 0.1 K/uL (0.0-0.2); BASOPHILS % (AUTO) 1.2 % (0.0-2.0); EOSINOPHILS # (AUTO) 0.3 K/uL (0.0-0.7); EOSINOPHILS % (AUTO) 4.1 % (0.0-6.0); LYMPHOCYTES # (AUTO) 1.2 K/uL (0.8-4.8); LYMPHOCYTES % (AUTO) 18.7 % (20.0-44.0); MEAN CORPUSCULAR HEMOGLOBIN 30 PG (26.0-33.0); MEAN CORPUSCULAR HGB CONC 33 g/dl (31.0-36.0); MEAN CORPUSCULAR VOLUME 90 fL (80-96); MONOCYTES # (AUTO) 0.6 K/uL (0.1-1.30); MONOCYTES % (AUTO) 8.6 % (2.0-12.0); NEUTROPHILS # (AUTO) 4.4 K/uL (1.8-8.9); NEUTROPHILS % (AUTO) 67.4 % (43.0-81.0); PLATELET COUNT (AUTO) 260 K/uL (150-450); RED BLOOD CELL COUNT(AUTO) 2.04 MIL/uL (4.5-6.0); WHITE BLOOD COUNT (AUTO) 6.5 K/uL (4.3-11.0)
[2024-02-17 20:11] LABS: MAGNESIUM 2.3 mg/dL (1.8-2.4)
[2024-02-17] MEDS ORDERED: NITROGLYCERIN 0.4 MG/TAB BOTTLE ONE (20:37)
[2024-02-17] MEDS: NITROGLYCERIN 0.4 MG/TAB BOTTLE SL ONE (20:40)
[2024-02-17 20:56] LABS: APPEARANCE,URINE CLEAR (CLEAR); BILIRUBIN,URINE NEGATIVE (NEGATIVE); BLOOD, URINE 3+ Ery/uL (NEGATIVE); COLOR,URINE YELLOW (YELLOW); KETONES,URINE NEGATIVE (NEGATIVE); LEUKOCYTE ESTERASE ,URINE 1+ (NEGATIVE); NITRITE, URINE NEGATIVE (NEGATIVE); PH,URINE 7.5 (5.0-8.0); PROTEIN,URINE 3+ mg/dl (NEGATIVE); UGLUCOSE 1+ mg/dL (NEGATIVE); UROBILINOGEN,URINE 0.2 EU/dL (0.2)
[2024-02-17 21:02] LABS: HEMATOCRIT 18 % (39-51); HEMOGLOBIN 6.1 g/dL (13.5-17.5)
[2024-02-17 21:20] LABS: ADD URINE CULTURE YES; BACTERIA,URINE 1+ /HPF (None Seen)
[2024-02-17 21:25] LABS: EOSINOPHILS % (MANUAL) 5 % (0-4); LYMPHOCYTES % (MANUAL) 18 % (16-48); MONOCYTES % (MANUAL) 5 % (0-11.0); NEUTROPHILS % (MANUAL) 72 (42-76)
[2024-02-17 21:26] LABS: ANISOCYTOSIS 1+; PLATELET ESTIMATE ADEQUATE
[2024-02-17] MEDS ORDERED: CEFTRIAXONE 1GM BAG (ER ONLY) 50 ML IV ONE (22:26)
[2024-02-17] MEDS ORDERED: Z GUARD REMEDY 4 OZ OINT TP PRN (22:30)
[2024-02-17] MEDS ORDERED: ONDANSETRON HCL/PF 4 MG/2 ML VIAL IVP PRN (22:30)
[2024-02-17] MEDS ORDERED: ZOLPIDEM TARTRATE 5 MG TABLET PO PRN (22:30)
[2024-02-17] MEDS ORDERED: ACETAMINOPHEN 325 MG TABLET PO PRN (22:30)
[2024-02-17] MEDS ORDERED: NITROGLYCERIN 30 GM TUBE TP PRN (22:30)
[2024-02-17] MEDS: CEFTRIAXONE 1GM BAG (ER ONLY) 1 GM/50 ML PIGGYBACK IV ONE (22:35)
[2024-02-17 23:05] VITALS: BP 168/81; TEMP 97.7; O2SAT 97
[2024-02-17 23:15] VITALS: BP 168/81; TEMP 97.7; O2SAT 97
[2024-02-18] VITALS (20 sets, daily range): BP systolic 159–211; BP diastolic 80–111; TEMP 97.3–97.8; O2SAT 96–100
[2024-02-18] MEDS ORDERED: NITROGLYCERIN PACKET 1 GM PACKET ONE (03:59)
[2024-02-18] MEDS: NITROGLYCERIN PACKET 1 GM PACKET TOP ONE (04:29)
[2024-02-18] MEDS: hydrALAZINE HCL IV 20 MG VIAL IV PRN (06:51)
[2024-02-18 08:46] LABS: BASOPHILS # (AUTO) 0.1 K/uL (0.0-0.2); BASOPHILS % (AUTO) 0.6 % (0.0-2.0); EOSINOPHILS # (AUTO) 0.2 K/uL (0.0-0.7); EOSINOPHILS % (AUTO) 1.8 % (0.0-6.0); HEMATOCRIT 24 % (39-51); HEMOGLOBIN 7.8 g/dL (13.5-17.5); LYMPHOCYTES # (AUTO) 0.9 K/uL (0.8-4.8); LYMPHOCYTES % (AUTO) 8.3 % (20.0-44.0); MEAN CORPUSCULAR HEMOGLOBIN 29 PG (26.0-33.0); MEAN CORPUSCULAR HGB CONC 33 g/dl (31.0-36.0); MEAN CORPUSCULAR VOLUME 89 fL (80-96); MONOCYTES # (AUTO) 0.4 K/uL (0.1-1.30); MONOCYTES % (AUTO) 4.1 % (2.0-12.0); NEUTROPHILS # (AUTO) 8.8 K/uL (1.8-8.9); NEUTROPHILS % (AUTO) 85.2 % (43.0-81.0); PLATELET COUNT (AUTO) 310 K/uL (150-450); RED BLOOD CELL COUNT(AUTO) 2.69 MIL/uL (4.5-6.0); WHITE BLOOD COUNT (AUTO) 10.3 K/uL (4.3-11.0)
[2024-02-18] MEDS: PANTOPRAZOLE 40 MG VIAL IV SCH (08:49)
[2024-02-18] MEDS: HEPARIN SODIUM, PORCINE 5000 UNITS/1 ML VIAL SQ SCH (09:00)
[2024-02-18 09:08] LABS: ALBUMIN 2.1 g/dL (3.4-5.0); BILIRUBIN,DIRECT 0.1 mg/dL (0.0-0.2); BILIRUBIN,TOTAL 0.4 mg/dL (0.2-1.0); CALCIUM, SERUM 8.4 mg/dL (8.5-10.1); MAGNESIUM 2.4 mg/dL (1.8-2.4); POTASSIUM 4.8 mmol/L (3.5-5.1); TOTAL PROTEIN, SERUM 6.2 g/dL (6.4-8.2)
[2024-02-18 09:10] LABS: CREATININE 9.9 mg/dL (0.6-1.3); PHOSPHORUS 10.3 mg/dL (2.5-4.9); THYROID STIMULATING HORMONE 1.27 uIU/mL (0.358-3.74)
[2024-02-18] MEDS ORDERED: SEVELAMER CARBONATE 800 MG TABLET PO SCH (13:00)
[2024-02-18] MEDS ORDERED: CEFTRIAXONE 1 G in IV D5W 50 ML IV SCH (21:00)
[2024-02-18] MEDS ORDERED: NIFEDIPINE XL 60 MG TAB.ER.24 PO SCH (21:00)
[2024-02-18] MEDS ORDERED: hydrALAZINE HCL 25 MG TABLET PO SCH (21:00)
[2024-02-18] MEDS ORDERED: CARVEDILOL 12.5 MG TABLET PO SCH (21:00)
[2024-02-19] MEDS ORDERED: PANTOPRAZOLE 40 MG TABLET.DR PO SCH (07:30)
[2024-02-19] MEDS ORDERED: MIRTAZAPINE 15 MG TABLET PO SCH (09:00)
== END 2024-02-18 13:00 | disposition left against medical advice (07) | DRG 425 ==
LOC: ER 20:06 → TELE 21:39 → ICU 02-18 05:05
PROVIDERS: ADMIT Nurse Practitioner Family; ATTEND Internal Medicine
PROC: 5A09357 Assistance with Respiratory Ventilation, Less than 24 Consecutive Hours, Continuous Positive Airway Pressure (ICD-10-PCS; principal; 2024-02-17)
PROC: 30233N1 Transfusion of Nonautologous Red Blood Cells into Peripheral Vein, Percutaneous Approach (ICD-10-PCS; 2024-02-17)
PROC: 5A1D70Z Performance of Urinary Filtration, Intermittent, Less than 6 Hours Per Day (ICD-10-PCS; 2024-02-18)
DX: E87.70 Fluid overload, unspecified (principal); J96.01 Acute respiratory failure with hypoxia; I21.4 Non-ST elevation (NSTEMI) myocardial infarction; N18.6 End stage renal disease; E11.22 Type 2 diabetes mellitus with diabetic chronic kidney disease; I12.0 Hypertensive chronic kidney disease with stage 5 chronic kidney disease or end stage renal disease; I25.10 Atherosclerotic heart disease of native coronary artery without angina pectoris; F10.10 Alcohol abuse, uncomplicated; Y90.9 Presence of alcohol in blood, level not specified; Z99.2 Dependence on renal dialysis; Z91.199 Patient's noncompliance with other medical treatment and regimen due to unspecified reason; F41.9 Anxiety disorder, unspecified; Z79.899 Other long term (current) drug therapy; E88.09 Other disorders of plasma-protein metabolism, not elsewhere classified; N39.0 Urinary tract infection, site not specified; Z87.01 Personal history of pneumonia (recurrent); Z88.2 Allergy status to sulfonamides; Z87.828 Personal history of other (healed) physical injury and trauma; F11.11 Opioid abuse, in remission; N25.0 Renal osteodystrophy
CPT/HCPCS: 36415; 36600; 71045-TC; 80048-TC; 80076-TC; 81001; 82803-TC; 83735-TC; 84100-TC; 84443-TC; 84484-TC; 85025-TC; 86850-TC; 87040-TC; 87081-TC; 90935-TC; 99082-TC; G0378; J0360; J0696; J1644; J2470; J7060; P9016